=== PATIENT | male | born 1955 | race Caucasian/White ===

== ENCOUNTER → 2020-11-06 14:06 | Outpatient (CLI) | payer OTHER, SELFPAY ==
--- NOTE | 2020-11-06 14:08 | DI.MRI.S_ITS ---
PROCEDURE: MR CERVICAL SPINE WO CON INDICATIONS: cervical radiculopathy TECHNIQUE: Noncontrast sagittal T1 spin echo and T2 fast spin echo, sagittal STIR, foraminal oblique sagittal T2 fast spin echo, and axial gradient echo or T2 fast spin echo through the cervical spine. COMPARISON: None. FINDINGS: Image quality: Excellent. Alignment and Curvature: Grade 1 anterolisthesis of C3 on C4 and grade 1 retrolisthesis of C4 on C5. Grade 1 anterolisthesis of C6 on C7 and C7 on T1. Bone Marrow: No fracture. Multilevel degenerative endplate sclerosis and spurring. Diffuse facet arthropathy. Spinal Cord: Visualized spinal cord has normal size and signal. No cerebellar tonsillar herniation. Paraspinous Soft Tissues: No paravertebral masses. Prevertebral soft tissues are normal in thickness. C2-C3: No definite canal or right foraminal stenosis. Mild left foraminal narrowing C3-C4: Mild canal narrowing. Severe right foraminal stenosis with nerve root compression. Minimal left foraminal stenosis C4-C5: Mild canal narrowing. Mild right foraminal stenosis. Moderate left foraminal stenosis with nerve root compression. C5-C6: Idfh-zq-lbpljgko canal narrowing. Moderate right foraminal stenosis . Mild left foraminal narrowing. C6-C7: No canal stenosis. No foraminal stenosis. C7-T1: No definite canal narrowing. No foraminal stenoses IMPRESSION: Multilevel spondylolisthesis as above. Cervical spondylosis and facet arthropathy. Pjdu-lb-qptzvzqp canal narrowing at C5-C6 Diffuse bilateral foraminal stenoses as detailed above by spinal level Dictated by: Lonnie Simental M.D. on 11/06/2020 at 15:27 Approved by: Lonnie Simental M.D. on 11/06/2020 at 15:34
== END ==
PROVIDERS: Referring Provider Physical Medicine & Rehabilitation; Visit Provider Physical Medicine & Rehabilitation
DX: M47.22 Other spondylosis with radiculopathy, cervical region (principal); M43.12 Spondylolisthesis, cervical region; M48.02 Spinal stenosis, cervical region
CPT/HCPCS: 72141

== ENCOUNTER → 2021-02-11 08:59 | Outpatient (CLI) | payer OTHER, SELFPAY ==
[2021-02-11 09:16] LABS: Add Manual Diff / Slide Review NO; Basophils Absolute Auto 0 /uL (0-100); Basophils Percent Auto 0.7 % (0-2); Eosinophils Absolute Auto 300 /uL (0-450); Eosinophils Percent Auto 4.3 % (2-4); Hematocrit 41.8 % (41-53); Hemoglobin 14.3 g/dL (13.5-17.5); Lymphocytes Absolute Auto 1700 /uL (1100-4500); Lymphocytes Percent Auto 26.7 % (25-40); Mean Corpuscular HGB Conc 34.1 % (30-36); Mean Corpuscular Hemoglobin 29.3 PG (26-34); Monocytes Absolute Auto 800 /uL (0-900); Monocytes Percent Auto 12.2 % (3-14); Neutrophils Absolute Auto 3700 /uL (1500-7000); Neutrophils Percent Auto 56.1 % (50-75); Platelet Count 209 X10^3/uL (150-400); Red Blood Cell Count 4.86 X10^6/uL (4.5-5.9); Red Cell Distribution Width 12.8 % (11.6-14.8); White Blood Cell Count 6.5 X10^3/uL (4.5-11.0)
[2021-02-11 09:33] LABS: Alanine Aminotransferase 24 IU/L (<50); Albumin 4.5 g/dL (3.5-5.0); Albumin Globulin Ratio 1.3 (1.0-2.8); Alkaline Phosphatase 72 U/L (38-126); Aspartate Aminotransferase 34 IU/L (17-59); BUN Creatinine Ratio 15.4 (6-22); Bilirubin Total 0.6 mg/dL (0.2-1.3); Blood Urea Nitrogen 19 mg/dL (9-20); Calcium 9.5 mg/dL (8.4-10.2); Carbon Dioxide 28 mmol/L (22-32); Chloride 104 mmol/L (98-107); Estimated Glomerular Filt Rate 59.1 mL/min (>60); Globulin 3.4 g/dL (1.7-4.1); Glucose 104 mg/dL (80-110); Sodium 140 mmol/L (137-145); Total Protein 7.9 g/dL (6.3-8.2)
[2021-02-11 09:38] LABS: HEMOLYSIS 55 (0-50)
[2021-02-11 09:41] LABS: Potassium 4.3 mmol/L (3.4-5.1)
[2021-02-11 10:15] LABS: Bacteria Urine None Seen
[2021-02-11 10:30] LABS: Appearance Urine UA CLEAR; Bilirubin Urine UA NEGATIVE (NEGATIVE); Color Urine UA YELLOW; Glucose Urine UA NEGATIVE (Negative); Ketones Urine UA NEGATIVE (NEGATIVE); Leukocyte Esterase Urine UA NEGATIVE (NEGATIVE); Nitrite Urine UA NEGATIVE (Negative); Occult Blood Urine UA 3+ (Negative); Protein Urine UA NEGATIVE (Negative); Urobilinogen Urine UA 0.2 E.U./dL (0.2)
[2021-02-11 10:44] LABS: Culture Indicated Urine Cult Not Indicated; RBC Urine 30-100/HPF (0-5/HPF); Squamous Epithelial Cell Urine 0-1 /HPF (0-5/HPF); WBC Urine 0-1/HPF (0-5/HPF)
== END ==
PROVIDERS: PCP Family Medicine; Referring Provider Student in an Organized Health Care Education/Training Program; Visit Provider Student in an Organized Health Care Education/Training Program
DX: R31.9 Hematuria, unspecified (principal)
CPT/HCPCS: 36415; 80053; 81001; 85025; 87086

== ENCOUNTER → 2021-03-05 08:27 | Outpatient (CLI) | payer OTHER, SELFPAY ==
[2021-03-05 08:31] LABS: Bacteria Urine None Seen
[2021-03-05 09:55] LABS: Appearance Urine UA CLEAR; Bilirubin Urine UA NEGATIVE (NEGATIVE); Color Urine UA YELLOW; Glucose Urine UA NEGATIVE (Negative); Ketones Urine UA NEGATIVE (NEGATIVE); Leukocyte Esterase Urine UA NEGATIVE (NEGATIVE); Nitrite Urine UA NEGATIVE (Negative); Occult Blood Urine UA TRACE-LYSED (Negative); Protein Urine UA NEGATIVE (Negative); Specific Gravity Urine UA 1.025 (1.000-1.035); Urobilinogen Urine UA 0.2 E.U./dL (0.2)
[2021-03-05 10:09] LABS: RBC Urine 0-1/HPF (0-5/HPF); WBC Urine 0-1/HPF (0-5/HPF)
[2021-03-05 10:10] LABS: Culture Indicated Urine Cult Not Indicated
== END ==
PROVIDERS: PCP Family Medicine; Referring Provider Family Medicine; Visit Provider Family Medicine
DX: R31.9 Hematuria, unspecified (principal)
CPT/HCPCS: 81001

== ENCOUNTER → 2021-06-18 08:57 | Outpatient (CLI) | payer OTHER, SELFPAY ==
[2021-06-18 10:30] LABS: Add Manual Diff / Slide Review NO; Basophils Absolute Auto 100 /uL (0-100); Eosinophils Absolute Auto 200 /uL (0-450); Eosinophils Percent Auto 4.4 % (2-4); Hematocrit 41.4 % (41-53); Hemoglobin 13.9 g/dL (13.5-17.5); Lymphocytes Absolute Auto 1400 /uL (1100-4500); Lymphocytes Percent Auto 25.1 % (25-40); Mean Corpuscular HGB Conc 33.6 % (30-36); Mean Corpuscular Volume 89.4 fL (80-100); Monocytes Absolute Auto 700 /uL (0-900); Monocytes Percent Auto 13.1 % (3-14); Neutrophils Absolute Auto 3200 /uL (1500-7000); Neutrophils Percent Auto 56.4 % (50-75); Platelet Count 166 X10^3/uL (150-400); Red Blood Cell Count 4.63 X10^6/uL (4.5-5.9); Red Cell Distribution Width 13.1 % (11.6-14.8); White Blood Cell Count 5.7 X10^3/uL (4.5-11.0)
[2021-06-18 10:50] LABS: Alanine Aminotransferase 18 IU/L (<50); Albumin 4.3 g/dL (3.5-5.0); Albumin Globulin Ratio 1.4 (1.0-2.8); Alkaline Phosphatase 72 U/L (38-126); Aspartate Aminotransferase 27 IU/L (17-59); BUN Creatinine Ratio 18.5 (6-22); Bilirubin Total 0.8 mg/dL (0.2-1.3); Blood Urea Nitrogen 23 mg/dL (9-20); Calcium 9.3 mg/dL (8.4-10.2); Carbon Dioxide 28 mmol/L (22-32); Chloride 106 mmol/L (98-107); Cholesterol 203 mg/dL (140-199); Estimated Glomerular Filt Rate 58.5 mL/min (>60); Glucose 88 mg/dL (80-110); HDL Cholesterol 45 mg/dL (40-60); HEMOLYSIS < 15 (0-50); LDL Cholesterol Calculated 124 mg/dL (<100); Potassium 4.3 mmol/L (3.4-5.1); Sodium 140 mmol/L (137-145); Total Protein 7.3 g/dL (6.3-8.2); Triglycerides 169 mg/dL (35-150)
== END ==
PROVIDERS: PCP Family Medicine; Referring Provider Family Medicine; Visit Provider Family Medicine
DX: E78.2 Mixed hyperlipidemia (principal)
CPT/HCPCS: 36415; 80053; 80061; 85025

== ENCOUNTER → 2021-09-17 14:04 | Outpatient (CLI) | payer OTHER, SELFPAY ==
[2021-09-17 16:22] LABS: Add Manual Diff / Slide Review NO; Basophils Absolute Auto 0 /uL (0-100); Basophils Percent Auto 0.7 % (0-2); Eosinophils Absolute Auto 200 /uL (0-450); Eosinophils Percent Auto 3.1 % (2-4); Hematocrit 39.6 % (41-53); Hemoglobin 13.3 g/dL (13.5-17.5); Lymphocytes Absolute Auto 1700 /uL (1100-4500); Lymphocytes Percent Auto 25.7 % (25-40); Mean Corpuscular HGB Conc 33.5 % (30-36); Mean Corpuscular Hemoglobin 29.5 PG (26-34); Monocytes Absolute Auto 700 /uL (0-900); Monocytes Percent Auto 10.3 % (3-14); Neutrophils Absolute Auto 4000 /uL (1500-7000); Neutrophils Percent Auto 60.2 % (50-75); Platelet Count 221 X10^3/uL (150-400); White Blood Cell Count 6.6 X10^3/uL (4.5-11.0)
[2021-09-17 17:33] LABS: BUN Creatinine Ratio 18.6 (6-22); Blood Urea Nitrogen 24 mg/dL (9-20); Calcium 9.2 mg/dL (8.4-10.2); Carbon Dioxide 30 mmol/L (22-32); Chloride 102 mmol/L (98-107); Estimated Glomerular Filt Rate 55.9 mL/min (>60); Glucose 92 mg/dL (80-110); HEMOLYSIS < 15 (0-50); Potassium 4.7 mmol/L (3.4-5.1); Sodium 140 mmol/L (137-145)
== END ==
PROVIDERS: PCP Family Medicine; Referring Provider Orthopaedic Surgery Orthopaedic Surgery of the Spine; Visit Provider Orthopaedic Surgery Orthopaedic Surgery of the Spine
DX: Z01.812 Encounter for preprocedural laboratory examination (principal); R73.9 Hyperglycemia, unspecified
CPT/HCPCS: 36415; 80048; 83036; 85025; 93005

== ENCOUNTER → 2021-10-06 16:53 | Outpatient (CLI) | payer OTHER, SELFPAY ==
[2021-10-06 17:31] LABS: COVID19 -Nasal RAPID Negative (Negative)
== END ==
PROVIDERS: PCP Family Medicine; Referring Provider Physician Assistant; Visit Provider Physician Assistant
DX: Z20.822 Contact with and (suspected) exposure to COVID-19 (principal)
CPT/HCPCS: 87635

== ENCOUNTER 2021-10-07 07:48 | Observation (INO) | payer OTHER, SELFPAY ==
[2021-09-29 08:46] VITALS: BMI 27.2
[2021-10-07] VITALS (18 sets, daily range): BP systolic 125–159; BP diastolic 58–101; PULSE 68–94; RESP 8–100; TEMP 36.2–36.8; O2SAT 92–100; BMI 27.2
[2021-10-07] MEDS: ACETAMINOPHEN 325 MG TABLET 975 MG PO (08:30)
[2021-10-07] MEDS: LACTATED RINGERS 1,000 ML 42 ML IV ×2 (08:46→12:19)
--- NOTE | 2021-10-07 09:06 | PM.PREOP ---
Pre-operative Note COVID-19 COVID-19 status: Negative Result date/Date tested (Pos, Neg/Pending): 10/05/21 Interval Note History & Physical reviewed/Exam performed by Physician: Yes Changes to H&P: No
[2021-10-07] MEDS: CEFAZOLIN 2 GM/20 ML SYRINGE IV ×2 (09:52→17:26)
--- NOTE | 2021-10-07 10:32 | SUR.OPER ---
Supine, head on gel donut. Arms padded with gel pads, tucked at sides, towel roll under shoulders. Safety belt at thigh. Legs uncrossed.
[2021-10-07] MEDS: BUPIVACAINE 0.25% (PF) 30 ML, EPINEPHrine 0.15 MG INJ (12:14)
--- NOTE | 2021-10-07 12:18 | DI.RAD.S_ITS ---
PROCEDURE: XR CERVICAL SPINE 2V OR 3V INDICATIONS: C5-6, C6-7 ACDF TECHNIQUE: 3 view(s) of the cervical spine were acquired. COMPARISON: [facility], , CERVICAL SPINE INTERLAMINAR, 03/08/2021, 14:09. FINDINGS: 3 intraoperative images demonstrate discectomy and anterior fusion at C5-C6 and C6-C7. IMPRESSION: Discectomy anterior fusion at C5-C6 and C6-C7. Dictated by: Perry Barboza M.D. on 10/07/2021 at 12:46 Approved by: Perry Barboza M.D. on 10/07/2021 at 12:47
--- NOTE | 2021-10-07 12:27 | PM.OP.1 ---
Operative Date/Time/Diagnoses Date of procedure: 10/07/21 Time of procedure: 10:15 Pre-op diagnosis: 1. C5-6, C6-7 spinal stenosis 2. C5-6, C6-7 spondylolisthesis Post-op diagnosis: same Procedure & Clinicians Procedure: 1. C5-6 C6-7 anterior cervical diskectomy and fusion 2. C5-6 C6-7 anterior interbody cage placement 3. C5-6 C6-7 anterior instrumentation with plate and screw placement in C5-C6 and C7 vertebrae 4. Utilization of microsurgical technique and operating microscope Same procedure as scheduled: Yes Indications: Patient has been having chronic neck pain and worsening cervical radiculopathy. Patient failed multiple conservative management with worsening pain weakness and numbness in his upper extremity. Patient has been having difficulty performing activity of daily living. After discussing risks benefits of treatment options, patient elected proceed with surgery. Surgeon: Trina Rolle Photography Spotter: Denae Daily Click Yes if Unassisted: No Anesthesia Type: General Operative Notes Closure Type: primary Specimen(s): none sent Prosthetic devices, grafts, tissues, transplants, or devices: Globus Extend Plate, PEEK cages Estimated Blood Loss (mL): 5 Blood products transfused: none Procedure in detail: Patient was seen in the preoperative area. Risks and benefits of the surgery was discussed with the patient. Operative consent was obtained and placed in the chart. Patient was then taken to the operative room. Prophylactic antibiotic was given less than 0.5 hr prior to skin incision. General anesthesia was administered. Patient was placed into a supine position on her radiolucent table. Bilateral shoulders were taped down to allow proper C-arm imaging. Anterior cervical area was prepped and draped in a sterile fashion. Time-out was performed at this time. Using lateral C-arm imaging, the level between C5 and C7 was identified and marked on patient's neck. A oblique incision from midline towards medial border of sternocleidomastoid muscle was made. The platysma muscle was incised in line with skin incision. Metzenbaum scissor was used to develop the plane between the medial border of sternocleidomastoid d and the strap muscles medially. The carotid sheath and its contents were identified and protected behind the hand-held retractor during the entire case. The plane between the carotid sheath and strap muscles was developed with Metzenbaum scissors. Dissection was made down to the level of the anterior cervical fascia. Longus colli muscle was incised on the anterior aspect of vertebral bodies bilaterally from C5-C7. Spinal needle was placed into the C5-6 disc space and confirmed with lateral C-arm imaging. Using microsurgical technique and operative microscope, anterior cervical diskectomy was performed at C5-6 and C6-7 level. This was done by removing the disc material, removing the anterior and posterior osteophytes posterior longitudinal ligaments along with performing bilateral foraminotomies at both levels. Patient was found to have severe central and foraminal stenosis at both levels. Patient's stenosis was fully decompressed after decompression was completed. After the diskectomy was completed, 2 anterior interbody cages were obtained. The cages were packed with globus via cell bone grafting material. One cage each along with the bone grafting material was then packed into the interbody spaces from C5-C7 with one cage into each interbody level. After reviewing the MRI imaging there is not significant spinal stenosis at C7-T1 level. Patient also has significant cephalad located clavicle making the approach to C7-T1 level difficult. Decision at this time was to not perform the fusion surgery at C7-T1 level. If indicated in the future with persisting symptoms, patient may need to consider posterior approach for C7-T1 fusion surgery. After the cages were placed, the anterior cervical plate was stabilized to the C5-C7 vertebrae using 2 screws at each each level. Total 6 screws were placed. After confirming placement of the hardware with AP and lateral C-arm imaging, the screws were locked into the plate using the locking mechanism and torque limiting screwdriver. After the hardware was placed and confirmed with AP and lateral C-arm imaging, the wound was irrigated with sterile normal saline. The platysma muscle and the subcutaneous tissue was closed with 2-0 Vicryl. The skin was closed with 4-0Monocryl and Steri-Strips. Patient tolerated the procedure well. Patient was transferred recovery room in stable condition. There were no complications. Complications: none Post-operative Condition: stable Disposition: PACU Plan for aftercare: Admit to inpatient hospital
[2021-10-07] MEDS: fentaNYL 100 MCG/2 ML INJ IV (13:11)
[2021-10-07] MEDS: HYDROMORPHONE 2 MG INJ IV ×2 (13:12→13:21)
[2021-10-07] MEDS: hydrOXYzine 50 MG/ML INJ 25 MG IM (13:23)
[2021-10-07] MEDS: OXYCODONE IR 5 MG TABLET PO (13:44)
[2021-10-07] MEDS: SODIUM CHLORIDE 0.9% 1,000 ML 100 ML IV (14:53)
[2021-10-07] MEDS: hydrOXYzine pamoate 25 MG CAPSULE PO ×2 (17:21→23:43)
[2021-10-07] MEDS: ACETAMINOPHEN 325 MG TABLET 650 MG PO ×2 (17:21→23:44)
[2021-10-07] MEDS: OXYCODONE IR 5 MG TABLET 10 MG PO ×3 (17:22→23:43)
--- NOTE | 2021-10-07 18:58 | PC.NURSE ---
Pt arrived via bed from PACU at 1425. VSS, afebrile on RA. He is awake and OX3, moving all extremities well. He denies N/V, SOB, or numbness/tingling to extremities. Soft collar in place, with dressing underneath c/d/i. He reports throat slightly sore but able to advance diet slowly, then able to tolerate 100% of general diet meal this evening. He is able to ambulate to the bathroom and void multiple times this evening. He denies dizziness. PRN oxycodone, tylenol and vesteril given for increasing pain this evening with good effect he reports pain down to a 1/10. NS @ 100ml/hr, scd's and reaching 4000 on IS. went home for the evening, bed alarm placed.
[2021-10-07] MEDS: DOCUSATE 100 MG CAPSULE PO (20:55)
[2021-10-07] MEDS: SENNOSIDES 8.6 MG TABLET 17.2 MG PO (20:56)
[2021-10-07] MEDS: BENZOCAINE/MENTHOL 1 LOZ PKT 1 EACH PO ×3 (20:59→23:50)
[2021-10-08] MEDS: SODIUM CHLORIDE 0.9% 1,000 ML 100 ML IV (01:26)
[2021-10-08] MEDS: CEFAZOLIN 2 GM/20 ML SYRINGE IV (01:26)
[2021-10-08 03:25] VITALS: BP 151/83; PULSE 84; RESP 16; TEMP 37.4; O2SAT 97
[2021-10-08] MEDS: OXYCODONE IR 5 MG TABLET 10 MG PO ×2 (03:38→11:07)
[2021-10-08] MEDS: hydrOXYzine pamoate 25 MG CAPSULE PO ×2 (03:39→11:08)
[2021-10-08] MEDS: BENZOCAINE/MENTHOL 1 LOZ PKT 1 EACH PO (03:39)
[2021-10-08 05:02] LABS: Hematocrit 37.5 % (41-53); Hemoglobin 12.6 g/dL (13.5-17.5)
--- NOTE | 2021-10-08 08:09 | P.DS_ITS ---
History of Present Illness History of Present Illness Date Patient Seen: 10/08/21 Time Patient Seen: 08:09 Chief complaint: Neck pain s/p ACDF Narrative: The patient is complaining of smur-km-rsfnczne neck pain this morning. He is having mild difficulty swallowing but the lozenges are helping. He denies any new numbness or tingling in his upper extremities. Overall he is feeling well Discharge Providers Provider Discharge Date: 10/08/21 Primary care physician: Tian Keene DO Consults: 09/29/21 09:44 Consult to Anesthesiology Routine Comment: Consulting Provider: Anesthesiologist Reason for consultation: PAC courtesy re: Abnormal pre-op EKG 10/07/21 14:27 Consult to Occupational Therapy Evaluate & Treat Comment: Physician Instructions: Evaluate and treat Consult to Physical Therapy Evaluate & Treat Comment: Physician Instructions: Evaluate and Treat Discharge provider: Denae Daily PA-C Summary Hospital Course Discharge Diagnosis: 1. C5-6, C6-7 spinal stenosis 2. C5-6, C6-7 spondylolisthesis Hospital Course: Date of procedure: 10/07/21 Time of procedure: 10:15 Procedure & Clinicians Procedure: 1.? C5-6 C6-7 anterior cervical diskectomy and fusion 2.? C5-6 C6-7 anterior interbody cage placement 3.? C5-6 C6-7 anterior instrumentation with plate and screw placement in C5-C6 and C7 vertebrae 4.? Utilization of microsurgical technique and operating microscope Same procedure as scheduled: Yes Indications: Patient has been having chronic neck pain and worsening cervical radiculopathy. Patient failed multiple conservative management with worsening pain weakness and numbness in his upper extremity.? Patient has been having difficulty performing activity of daily living.? After discussing risks benefits of treatment options, patient elected proceed with surgery. Surgeon: Trina Rolle Global Marketing Operations Manager: Denae Daily Click Yes if Unassisted: No Anesthesia Type: General Operative Notes Closure Type: primary Specimen(s): none sent Prosthetic devices, grafts, tissues, transplants, or devices: Globus Extend Plate, PEEK cages Estimated Blood Loss (mL): 5 Blood products transfused: none Exam Vital Signs (past 8 hours): - 10/08/21 03:25 Temperature 99.3 F Pulse Rate 84 Respiratory Rate 16 Blood Pressure 151/83 H Pulse Oximetry 97 Oxygen Delivery Method Room Air Oxygen Flow Rate 0 Narrative Exam Narrative: Pleasant 66-year-old male, resting comfortably in bed, no acute distress. Dressing is clean, dry, intact. No surrounding erythema, induration or signs of a hematoma. Of bilateral upper extremities: Motor function is grossly intact, sensation is grossly intact to light touch. Objective Labs Result Diagrams: 10/08/21 04:35 Labs: Laboratory Results - last 24 hr 10/08/21 04:35 Hgb 12.6 L Hct 37.5 L PFSH Medical History Adverse reaction to COVID-19 vaccine (01/20/21) Bilateral carpal tunnel syndrome Cervical radiculopathy Cervical somatic dysfunction Erosion of terminal ileum HTN (hypertension) Hyperlipidemia, mixed Hypothyroidism (acquired) Neck pain of over 3 months duration Neck stiffness Nocturia associated with benign prostatic hyperplasia Spinal stenosis of cervical region Spondylolisthesis, cervical region Upper extremity somatic dysfunction Vaccine reaction Surgical History H/O hernia repair History of surgery Hx of tonsillectomy Family History Father Heart disease Mother Cancer Brother Cancer Other No pertinent family history Social History household members: spouse Smoking Status: Never smoker alcohol intake: former Discharge Assessment & Plan Assessment and Plan Assessment: Stable status post ACDF Plan of Treatment: -mobilize with PT. Limit bending, lifting, twisting -continue with current pain regimen -DC home today once cleared by PT. Discharge Plan Discharge Plan Patient Disposition: Home Discharge orders & Medications Discharge Orders: Discharge (Order); Ordered 10/08/21 Ordered By: Denae Daily Prescriptions: New acetaminophen 500 mg capsule 500 mg PO Q4H MDD Max 3000 mg per day PRN (Reason: Pain, Mild (1-3)) Qty: 90 0RF Cepacol Sore Throat (jem-men) 15-3.6 mg Lozenge 1 destinee PO Q4H PRN (Reason: Sore Throat) Qty: 16 1RF docusate sodium 100 mg Capsule 100 mg PO BID PRN (Reason: Constipation from narcotic pain meds) Qty: 20 0RF hydroxyzine pamoate 25 mg Capsule 25 mg PO Q4HR PRN (Reason: pain, spams, nausea) Qty: 30 0RF oxycodone 5 mg Tablet 10 mg PO Q4H PRN (Reason: Pain, Severe (7-10)) Qty: 42 0RF Continued lisinopril 10 mg tablet See Rx Instructions .ROUTE .COMPLEX Qty: 90 0RF Dose Instruction: take 1 tablet by mouth once daily Rx Instructions: take 1 tablet by mouth once daily levothyroxine 125 mcg tablet 125 mcg PO DAILY 0RF celecoxib [Celebrex] 200 mg capsule 200 mg PO DAILY PRN (Reason: Pain) 0RF Follow up/Referrals: Trina Rolle MD [Physician] - (10-14 days for postoperative visit) Tian Keene DO [Primary Care Provider] - Diet/Activity/Treatments Diet: Diet as Tolerated and Regular Other treatments: Medications: -OTC Tylenol 500 mg 1 tablet every 4 hours as needed for pain/fever. Max 6 tablets per day. -Oxycodone 5 mg take 1-2 tablets every 4 hours as needed for moderate-severe pain (narcotic pain medication). -As needed medications: -Ducolax and /or MiraLax as needed for constipation from narcotic pain medications. -Pepcid AC as needed for stomach upset. -Vistaril (hydroxyine) 25mg 1 tab every 4 hours as needed for spasms/pain/nausea. Dressing/Wound care: -Keep dressing in place until postoperative follow-up office visit. -Okay to shower. Keep wound out of direct water stream. Can use PressNSeal plastic wrap to protect from shower stream. No soaking or submerging until all the scabs fall off (approximately 6 weeks). -Please call the office if dressing becomes wet, soiled, or saturated. Activities: -Limit bending, lifting, twisting. -Weight-bearing as tolerated. Use front wheeled walker, and progress to cane when safe. -Continue with home exercises as directed by your physical therapist. -Ice your incision as needed for pain/inflammation/swelling. Protect your skin with a folded pillowcase. Follow-up: -Follow-up with your surgeon or PA in the office in 10-14 days after surgery. -Follow-up with your surgeon 6 weeks postoperatively. Call the office if you have chest pain, shortness of breath, significant swelling that will not resolve with elevating, fever over 101?, significantly worsening pain. [facility]: [phone] Skin/Wound/Dressing Care Report to your healthcare provider any signs of infection, such as:: chills, fever, night sweats, unusual drainage and unusual redness Visit Report/Discharge Packet Instructions: DI for Anterior Cervical Discectomy and Fusion Stand Alone Forms: Surgery Discharge Discharge Data Primary Care Provider: Tian Keene Attending Provider: Trina Rolle VTE Deep Vein Thrombosis/Pulmonary Embolism Present on Admission: No
[2021-10-08 08:17] VITALS: BP 128/84; PULSE 76; RESP 16; TEMP 36.8; O2SAT 97
[2021-10-08 08:27] VITALS: BP 128/74; PULSE 86
[2021-10-08] MEDS: lisinopriL 10 MG TABLET PO (08:27)
[2021-10-08] MEDS: DOCUSATE 100 MG CAPSULE PO (08:27)
[2021-10-08] MEDS: LEVOTHYROXINE 125 MCG TABLET PO (08:27)
--- NOTE | 2021-10-08 09:26 | OT.IP.EVAL ---
Current Diagnoses Spondylolisthesis, cervical region (10/07/21) Spinal stenosis, cervical region (10/07/21) Surgery Performed Operation Date: 10/07/21 09:15 Actual Procedures p C5-6, C6-7 ACDF with anterior instrumentation - Trina Rolle MD Past Medical History (Last Reviewed 10/08/21 @ 08:11 by Denae Daily PA-C) Adverse reaction to COVID-19 vaccine (01/20/21) Bilateral carpal tunnel syndrome Cervical radiculopathy Cervical somatic dysfunction Erosion of terminal ileum H/O hernia repair History of surgery HTN (hypertension) Hx of tonsillectomy Hyperlipidemia, mixed Hypothyroidism (acquired) Neck pain of over 3 months duration Neck stiffness Nocturia associated with benign prostatic hyperplasia Spinal stenosis of cervical region Spondylolisthesis, cervical region Upper extremity somatic dysfunction Vaccine reaction Surgical History (Last Reviewed 10/08/21 @ 08:11 by Denae Daily PA-C) H/O hernia repair History of surgery Hx of tonsillectomy Occupational Therapy Inpatient Evaluation/Re-Eval M1 PT/OT-IP Prior Functional Status Start: 10/08/21 10:01 Freq: NEEDED Status: Active Protocol: Document 10/08/21 10:01 [facility] (Rec: 10/08/21 10:11 [facility] [id number]) Medical Review Prior Functional Status Communication Independent Mobility and Gait Per pt did not use a device and was independent for mobility needs. 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 Social History Household Members spouse Living Arrangements House Number of Floors (Floors) One Floor Number of Stairs To Enter/Railing? 2 steps with wide rails or able to use a ramp. Home Environment Walk in Shower,Ramp Home Equipment Straight Cane,Power Wheelchair /Scooter M2 OT-IP Current Condition Start: 10/08/21 10:01 Freq: Status: Active Protocol: Document 10/08/21 10:01 [facility] (Rec: 10/08/21 10:11 [facility] [id number]) Occupational Therapy Current Condition Current Condition Evaluation Date 10/08/21 Treatment Diagnosis S/p C5-6, C6-7 ACDF Diagnosis Onset Date 10/07/21 Post Operative Precautions Cervical Spine Precautions Soft Collar for Comfort,No Heavy Lifting,Log Roll M3 OT- IP Subjective and Pain Start: 10/08/21 10:01 Freq: Status: Active Protocol: Document 10/08/21 10:01 [facility] (Rec: 10/08/21 10:11 [facility] [id number]) OT- Subjective Occupational Therapy Visit Type Type Initial Evaluation Visit Start Time 08:54 Visit Stop Time 09:26 Total Visit Minutes 32 Occupational Therapy Visit Comments Patient Comments Pt agreed to get up for Ot eval. Patient/Caregiver Goals TO go home. OT Pain Assessment Pain When Pain Assessed At Rest Pain Present Pain Present Pain Reported Location neck Intensity 2 Scale Used Numeric (0 - 10) M4 OT- IP ADL's Start: 10/08/21 10:01 Freq: Status: Active Protocol: Document 10/08/21 10: [facility] (Rec: 10/08/21 10:11 [facility] [id number]) OT LSQ-Rqkc-Mwyynqh General Evaluation Self-Feeding Ability Independent Comments OT Self-Feeding Comments Able to go over information for swallowing and eating after ACDF with pt. OT ADL-Oral Care Comments Oral Care Comments Educated best to spit into a cup to best follow his cervical precautions. OT ADL-Dressing General Eval Upper Body Dressing Ability Independent, pt able to independently imtiaz/doff his soft collar. Lower Body Dressing Ability Standby Assistance Comments OT Dressing Comments Pt able to comfortably cross his leg to don his LB clothing with good safety. Able to show pt visual arts teacher to help increase ease for needs. OT ADL-Toileting Comments OT Toileting Comments Pt not having to go. M5 OT- IP IADL's Start: 10/08/21 10:01 Freq: Status: Active Protocol: Document 10/08/21 10: [facility] (Rec: 10/08/21 10:11 [facility] [id number]) OT-Instrumental Activities of Daily Living Home Safety Awareness Home Safety Comments Pt has a supportive that will assist with his needs. M6 OT- IP Functional Cognition Start: 10/08/21 10:01 Freq: Status: Active Protocol: Document 10/08/21 10: [facility] (Rec: 10/08/21 10:11 [facility] [id number]) Cognitive Factors Limiting Selfcare Function Cognitive Ability Level of Alertness Alert Patient Orientation Name,Age,Birthday,Month,Date, Year,Day of Week,Place, Situation Attention Span Ability Capable of Focused Attention, Capable of Sustained Attention Ability to Follow Commands Able to Follow Multi-Step Commands Memory Description No Deficits Noted Safety Awareness No Deficits Noted Problem Solving Ability No deficits Noted Cognitive Comments Cognitive Assessment Comments Pt just needing initial vc to slow down. OT- Vision and Hearing OT- Hearing Assessment OT- Hearing Assessment WFL OT- Vision Assessment Visual Acuity Glasses All The Time M7 OT- IP Mobility and Balance Start: 10/08/21 10:01 Freq: Status: Active Protocol: Document 10/08/21 10:01 [facility] (Rec: 10/08/21 10:11 [facility] [id number]) OT- Bed Mobility Assessment Rolling Level of Assistance Independent Supine to Sit Supine to Sit Assist Standby Assistance Sit to Supine Sit to Supine Assist Standby Assistance OT-Transfer Assessment Sit to and From Stand Sit to and from Stand Independent Transfers Transfer Ability Independent Technique Transfer Destination Bed,Chair Devices Transfer Assistive Devices Gait Belt Comments Mobility Comments Initial education for log rolling and afterwards pt able to more independently in the room. OT- Balance Assessment Sitting Balance and Reactions Static Sitting Balance Ability Normal Dynamic Sitting Balance Ability Normal Standing Balance and Reactions Static Standing Balance Ability Normal Dynamic Standing Balance Ability Good M9 OT- IP Assessment and Plan Start: 10/08/21 10:01 Freq: Status: Active Protocol: Document 10/08/21 10:01 [facility] (Rec: 10/08/21 10:11 [facility] [id number]) OT Summary Assessment and Plan Potential Rehabilitation Potential Excellent Analytic Complexity at Evaluation Low Summary OT Impairments Pain,Bathing Progress Towards Goals Progressing Toward Goals Assessment Summary Pt low complexity and main barriers are pain and needing initial cues to slow down. Pt educated to be mindful of his head positioning needs during ADL. Pt has a supportive to assist at home. Pt looking to go home today. Goals Patient/Caregiver Education Goal Demonstrate Post-Op Precautions Days to Meet Goals 1 Frequency of Treatment Frequency Of Treatment Once a Day Treatment Plan OT Treatment Plan Patient/Family Education, Discharge Planning Discharge Recommendations OT Discharge Recommendations Home with Assistance Transportation Needs at Discharge Private Vehicle
--- NOTE | 2021-10-08 10:06 | PT.IIE ---
Current Diagnoses Spondylolisthesis, cervical region (10/07/21) Spinal stenosis, cervical region (10/07/21) Surgery Performed Operation Date: 10/07/21 09:15 Actual Procedures p C5-6, C6-7 ACDF with anterior instrumentation - Trina Rolle MD Medical History (Last Reviewed 10/08/21 @ 08:11 by Denae Daily PA-C) Adverse reaction to COVID-19 vaccine (01/20/21) Bilateral carpal tunnel syndrome Cervical radiculopathy Cervical somatic dysfunction Erosion of terminal ileum HTN (hypertension) Hyperlipidemia, mixed Hypothyroidism (acquired) Neck pain of over 3 months duration Neck stiffness Nocturia associated with benign prostatic hyperplasia Spinal stenosis of cervical region Spondylolisthesis, cervical region Upper extremity somatic dysfunction Vaccine reaction Physical Therapy Inpatient Evaluation/Re-Eval M1 PT/OT-IP Prior Functional Status Start: 10/08/21 10:01 Freq: NEEDED Status: Discharge Protocol: Document 10/08/21 10:01 [facility] (Rec: 10/08/21 10:11 [facility] [id number]) Medical Review Prior Functional Status Communication Independent Mobility and Gait Per pt did not use a device and was independent for mobility needs. 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 Social History Household Members spouse Living Arrangements House Number of Floors (Floors) One Floor Number of Stairs To Enter/Railing? 2 steps with wide rails or able to use a ramp. Home Environment Walk in Shower,Ramp Home Equipment Straight Cane,Power Wheelchair /Scooter M1 PT/OT-IP Prior Functional Status Start: 10/08/21 12:07 Freq: NEEDED Status: Active Protocol: Document 10/08/21 10:06 AB (Rec: 10/08/21 12:16 AB [id number]) Medical Review Prior Functional Status Medical History Reviewed Yes Communication able to make needs known Mobility and Gait pt tated that he is independent with all mobilities and ambulation without AD Social History Household Members spouse Living Arrangements House Number of Floors (Floors) One Floor Number of Stairs To Enter/Railing? 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 [employer] M2 PT-IP Current Condition Start: 10/08/21 12:07 Freq: NEEDED Status: Active Protocol: Document 10/08/21 10:06 AB (Rec: 10/08/21 12:16 AB [email or web address]) Physical Therapy Current Condition Current Condition Evaluation Date 10/08/21 Treatment Diagnosis s/p C5-6, C6-7 ACDF; difficulty in walking Onset Date 10/07/21 M3 PT-IP Subjective Start: 10/08/21 12:07 Freq: NEEDED Status: Active Protocol: Document 10/08/21 10:06 AB (Rec: 10/08/21 12:16 AB [id number]) Subjective Physical Therapy Visit Type Type Initial Evaluation Visit Start Time 10:06 Visit Stop Time 10:16 Total Visit Minutes 10 Number of MAINTENANCE MAN Visits 0 Physical Therapy Visit Comments Patient Comments agreeable to do PT Therapy Pain Assessment Pain When Pain Assessed At Rest Pain Present Pain Present Pain Reported Location neck Intensity 4 Scale Used Numeric (0 - 10) Pain Management Techniques Distraction,Modification of Treatment,Re-positioning, Timing of Activity with Medications M4 PT-IP Mobility and Gait Start: 10/08/21 12:07 Freq: NEEDED Status: Active Protocol: Document 10/08/21 10:06 AB (Rec: 10/08/21 12:16 AB [email or web address]) PT-Bed Mobility Assessment Rolling Type of Rolling Log Rolling Level of Assist Standby Assistance Supine to Sit Supine to Sit Standby Assistance Sit to Supine Sit to Supine Standby Assistance PT-Transfer Assessment Sit to and From Stand Sit to and from Stand Standby Assistance Equipment Transfer Assistive Device None Comments Mobility Comments pt able to recall neck precautions. completed log roll bed mobility SBA, sit to stand SBA and ambulated in room without AD SBA. agreed to walk in the hallway and ambulated ~ 250 ft SBA without . requested to go back to bed . Pt without any concerns. call light and table placed within reach. Gait Assessment Gait Gait Assistance Required: Standby Assistance Distance (Feet) 250 Able to Maintain Weight Bearing Status Yes During Gait Assistive Devices Assistive Device None Orthotic/Prosthetic Devices or Brace: Yes PT-Balance Assessment Sitting Balance and Reactions Static Sitting Balance Ability Normal Dynamic Sitting Balance Ability Good Standing Balance and Reactions Static Standing Balance Ability Good Dynamic Standing Balance Ability Good Device Used without AD M5 PT-IP Objective Assessments Start: 10/08/21 12:07 Freq: NEEDED Status: Active Protocol: Document 10/08/21 10:06 AB (Rec: 10/08/21 12:16 AB [email or web address]) Orientation Orientation/Cognition Level of Alertness Alert Orientation Name,Age,Birthday,Month,Date, Year,Day of Week,Place, Situation Language Function Ability No Deficits Noted Safety Awareness Understands Safety Issues Memory Description No Deficits Noted Gross Range of Motion Lower Extremity ROM Assessment Within Functional Limits Strength Lower Extremity Strength Assessment Within Functional Limits Coordination Assessment Gross Coordination Gross Coordination WNL Muscle Tone Muscle Tone WNL Yes M6 PT-IP Treatment Start: 10/08/21 12:07 Freq: NEEDED Status: Active Protocol: Document 10/08/21 10:06 AB (Rec: 10/08/21 12:16 AB [email or web address]) Physical Therapy Treatment Education Education Provided Precautions,Safety M7 PT-IP Assessment and Plan Start: 10/08/21 12:07 Freq: NEEDED Status: Active Protocol: Document 10/08/21 10:06 AB (Rec: 10/08/21 12:16 AB [email or web address]) PT Summary Assessment and Plan Potential Rehabilitation Potential Good Status of Condition at Evaluation Stable Summary Impairments Pain,ROM,Strength,Balance, Coordination,Sensation,Tone, Cognition,Bed Mobility, Transfers,Gait,Activity Tolerance Assessment Summary pt requiring SBA with mobility without AD. pt plans to go home and spouse to assist pt. Pt may go home when medically stable. Goals Bed Mobility Goal Independent Transfer Goal Independent Gait Goal Independent Gait Distance 300 Days to Meet Goals 3 Frequency of Treatment Frequency Of Treatment Twice a Day Treatment Plan Physical Therapy Treatment Plan Bed Mobility Training,Transfer Training,Gait Training, Therapeutic Exercise,Balance Retraining,Post Op Education, Discharge Planning,Hot or Cold Pack,Neuromuscular Re-ed, Coordination Retraining,Manual Therapy Precautions Cervical Spine Precautions Soft Collar for Comfort,No Heavy Lifting,Log Roll Recommendations To Nursing Amount of Assist Needed Standby Assistance Discharge Recommendations PT Discharge Recommendations Home with Assistance, Outpatient PT Transportation Needs at Discharge Private Vehicle
[2021-10-08] MEDS: ACETAMINOPHEN 325 MG TABLET 650 MG PO (11:08)
--- NOTE | 2021-10-08 11:35 | CM.IDA ---
Discharge Planning/Care Management CM Discharge Assessment Start: 10/08/21 11:32 Freq: Status: Active Protocol: Document 10/08/21 11:32 CB (Rec: 10/08/21 11:35 CB [id number]) Discharge Planning Assessment Assigned Early Childhood Aide Classroom LAMONT Yanez DPOA/Assigned Designee Name Melinda Laura, spouse Contact Information [phone] cell Advance Directives? Yes Advance Directives on File No History Provided By Patient,Medical Record Prior Living Arrangements House Household Members spouse Type of transporation used prior to Drives own vehicle admit Independent with ADL's Yes Is patient alert and oriented? 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 Patient denies needs from CM team; home w/family today, outpatient f/u Discharge Plan Home Transportation Arrangement Family Referrals Initiated None needed Plan: Home w/family today, outpatient f/u. No CM needs LAMONT Haji
--- NOTE | 2021-10-08 11:41 | PC.NURSE ---
Pt A&O x3 this a.m. Reports minimal pain. Ambulating independently in the room. VSS, afebrile on RA. Soft collar in place. Dressing C/D/I. Good po intake and voiding. PA at bedside this a.m. clearing patient for discharge after OT and PT vanessa. PT/OT clearing patient for discharge home. He verbalizes understanding of discharge plan, medications, site care, activity, worsening symptoms and follow up care. MANAGER WASTEWATER escorts him via wheelchair to private vehicle with spouse this a.m. with all of his belongings.
== END 2021-10-08 11:35 | disposition home or self-care (01) ==
LOC: OR 07:49 → AC 07:55
PROVIDERS: Admitting Provider Orthopaedic Surgery Orthopaedic Surgery of the Spine; PCP Family Medicine; Referring Provider Family Medicine; Visit Provider Orthopaedic Surgery Orthopaedic Surgery of the Spine
PROC: (CPT 22551; principal; 2021-10-07 09:15)
DX: M48.02 Spinal stenosis, cervical region (principal); M43.12 Spondylolisthesis, cervical region; G56.03 Carpal tunnel syndrome, bilateral upper limbs; E03.9 Hypothyroidism, unspecified; I10 Essential (primary) hypertension; E78.5 Hyperlipidemia, unspecified
CPT/HCPCS: 22551; 22552; 22853 ×2; 36415; 72040; 76000; 82962; 85014; 85018; 97161; 97165; 97530; C1776; G0378; J0171; J0330; J0690; J1100; J1170; J2250; J2405; J2704; J3010; J3410

== ENCOUNTER 2021-12-11 11:11 | Emergency (ER) | payer OTHER, SELFPAY ==
[2021-10-07 14:32] VITALS: BMI 27.2
[2021-12-11 11:27] VITALS: BP 170/92; PULSE 67; RESP 18; TEMP 37.2; O2SAT 100
--- NOTE | 2021-12-11 12:13 | ED_ITS ---
HPI - Neck Pain/Injury General Chief Complaint: Neck Pain/Injury Stated Complaint: Needs MRI, head injury - sent by [facility] Time Seen by Provider: 12/11/21 12:07 Mode of arrival: Family Vehicle History of Present Illness HPI Narrative: The patient is a 66-year-old male with history of prior neck surgery presenting with worsening neck pain over last 6 days. He said he was lying in bed propped up on his shoulder, 1 is laid down next to him and they vomit heads. He heard a crack. Since then he has had increasing neck pain numbness tingling in both arms. It is not constant and comes and goes. He has taken Celebrex ibuprofen and other medication. However continues to happen and wanted to be checked out. He denies any loss of consciousness no nausea or vomiting no headaches or vision will changes. Related Data Home Medications Medication Instructions Recorded Confirmed levothyroxine 125 mcg tablet 125 mcg PO DAILY 01/01/21 10/07/21 celecoxib 200 mg capsule (Celebrex) 200 mg PO DAILY PRN 09/29/21 10/07/21 Previous Rx's Medication Instructions Recorded lisinopril 10 mg tablet See Rx Instructions .ROUTE 10/01/21 .COMPLEX #90 tab acetaminophen 500 mg capsule 500 mg PO Q4H PRN #90 cap MDD Max 10/08/21 3000 mg per day benzocaine 15 mg-menthol 3.6 mg 1 destinee PO Q4H PRN #16 ea 10/08/21 lozenges (Cepacol Sore Throat (benzocaine-menthol)) docusate sodium 100 mg capsule 100 mg PO BID PRN #20 cap 10/08/21 hydroxyzine pamoate 25 mg capsule 25 mg PO Q4HR PRN #30 cap 10/08/21 oxycodone 5 mg tablet 10 mg PO Q4H PRN #42 tab 10/08/21 gabapentin 300 mg capsule 300 mg PO BEDTIME #30 cap 12/11/21 hydrocodone 5 mg-acetaminophen 325 1 tab PO Q6H PRN #10 tab 12/11/21 mg tablet Allergies Allergy/AdvReac Type Severity Reaction Status Date / Time gold Au 198 Allergy Mild Gold Verified 12/11/21 11:34 fillings caused bleeding Review of Systems Review of Systems Narrative: GENERAL: Denies chills, fatigue, malaise, fever, sweats, travel HEENT: Denies sinus pain, ear pain, sore throat, difficulty swallowing, neck pain RESPIRATORY: Denies dyspnea, cough, wheezing, hemoptysis, sputum. CARDIOVASCULAR: Denies chest pain, palpitations, orthopnea, edema GASTROINTESTINAL: Denies nausea, vomiting, abdominal pain, diarrhea, constipation, melena. : Denies dysuria, frequency, incontinence, hematuria, urinary retention, flank pain. MUSCULOSKELETAL: See HPI SKIN: No rash, no erythema, no pruritus NEUROLOGIC: Denies weakness, dizziness, headache, numbness, change in speech, confusion PSYCHIATRIC: No concerning psychosocial issues. 12 point review of systems is negative except for those stated above and HPI Patient History Medical History Adverse reaction to COVID-19 vaccine (01/20/21) Bilateral carpal tunnel syndrome Cervical radiculopathy Cervical somatic dysfunction Erosion of terminal ileum HTN (hypertension) Hyperlipidemia, mixed Hypothyroidism (acquired) Neck pain of over 3 months duration Neck stiffness Nocturia associated with benign prostatic hyperplasia Spinal stenosis of cervical region Spondylolisthesis, cervical region Upper extremity somatic dysfunction Vaccine reaction Surgical History H/O hernia repair History of surgery Hx of tonsillectomy Family History Father Heart disease Mother Cancer Brother Cancer Other No pertinent family history Social History household members: spouse Smoking Status: Never smoker alcohol intake: former Smoking Status: Never smoker alcohol intake frequency: holidays/special occasions only Substance Use Type: does not use Exam Initial Vital Signs Initial Vital Signs: Vital Signs Temperature 98.9 F 12/11/21 11:27 Pulse Rate 67 12/11/21 11:27 Respiratory Rate 18 12/11/21 11:27 Blood Pressure 170/92 H 12/11/21 11:27 Pulse Oximetry 100 12/11/21 11:27 GENERAL: Well-appearing, well-nourished and in [no acute] distress. HEENT: Head atraumatic,EOMI, pupils reactive, face symmetric, [moist] mucous membranes NECK: Mild tenderness more on right than left full range of motion CARDIOVASCULAR: Regular rate and rhythm without murmurs, rubs or gallops. RESPIRATORY: Breath sounds equal bilaterally, no wheezes rales or rhonchi. EXTREMITIES: Normal range of motion, no clubbing or edema. Neurovascularly intact NEUROLOGICAL: Alert and oriented x4.Normal gait and speech. Child Life Assistant strength equal bilaterally, sensation intact SKIN: Warm, dry, no laceration, no petechiae, no rashes or lesions. Course Orders Ordered: ED Orders 12/11/21 12:22 CT cervical spine wo con Stat Vital Signs Vital signs: Vital Signs - 8 hr 12/11/21 11:27 Temperature 98.9 F Pulse Rate 67 Respiratory Rate 18 Blood Pressure 170/92 H Pulse Oximetry 100 MDM - Neck Pain/Injury Imaging Data CT - cervical spine: Radiologist's Impression: PROCEDURE:? CT CERVICAL SPINE WO CON ? INDICATIONS:? pain prior x1 week after injury surgery ? TECHNIQUE:? Noncontrast 3 mm thick sections acquired from the skull base to the T4 level. ?Sagittal and coronal reformats were then constructed.? For radiation dose reduction, the following was used:? automated exposure control, adjustment of mA and/or kV according to patient size.? ? COMPARISON:? [facility] [place], [place], XR CERVICAL SPINE 2 OR 3 VIEWS, 11/18/2021, 9:09. ? FINDINGS:? Image quality:? Excellent.? ? Bones:? C5-6 and C6-7 discectomy and fusion with anterior plate and screw hardware in good position.? There is disc space narrowing and hypertrophic facet joints noted at C7-T1 resulting in grade 1 anterior spondylolisthesis.? Degenerative retrolisthesis noted at C3-4 as well.? No evidence of fracture or traumatic malalignment no hardware failure.? Craniovertebral relationships are normal. ? Soft tissues:? Prevertebral soft tissues are normal in thickness.? No paravertebral hematomas.? No apical pneumothoraces.? ? ? IMPRESSION:? ? 1. No evidence of fracture or traumatic malalignment. ? 2. Anterior cervical discectomy and fusion at C5-6 and C6-7 with anterior plate and screw hardware in good position.? No hardware failure.? ? 3.? Degenerative C4-5 retrolisthesis and C7-T1 anterior listhesis. ? Approved by: Ray Flores M.D. on 12/11/2021 at 12:08? [facility] Narrative Medical decision making narrative: At this time patient has a low mechanism of injury but is having ongoing worsening pain for 1 week, intermittent neuropathy. Home PT cervical spine is negative. He actually has follow-up with S spinal surgeons this week. This time recommend home pain medication he will likely get an outpatient MRI soon. If symptoms worsen he should return. Discharge Plan Departure Patient Disposition: Home Clinical Impression: Cervical radiculopathy Instructions: Chronic Neck Pain Activity Restrictions/Additional Instructions: *You have been diagnosed with chronic neck pain, cervical radiculopathy *What to do: At this time pending her having an acute exacerbation of pain. If pain is not improving you may need outpatient MRI cover CT at this time is negative *Continue to take medications as directed Gabapentin 300 mg at night for nerve pain [place] 1 tablet every 6 hours needed for severe pain *Follow up with your primary care provider in 2-3 days or call [phone] *Return to ER if you should have increasing weakness, pain, any new, worsening or concerning symptoms CONTROLLED SUBSTANCE DISCHARGE (Narcotoic/benzodiazepine/Flexeril/Phenergan) 1. You have been prescribed narcotic medications, it does have acetaminophen/Tylenol/paracetamol in it, DO NOT TAKE MORE THAN 4,00mg in 24 hours of Tylenol. TRAMADOL DOES NOT CONTAIN TYLENOL 2. Please understand that we cannot provide further refills of narcotics, benzodiazepines or controlled substances through the ED and her pain management will need to be through your provider. 3. While on these medications you cannot drive or operate heavy machinery. 4. You cannot sign legal documents or perform any duties such as this. 5. As long as you're taking opiate pain medications he should also be taking a stool softener such as Colace, Dulcolax, MiraLAX or prune juice, to help avoid constipation. Prescriptions: New gabapentin 300 mg capsule 300 mg PO BEDTIME Qty: 30 0RF hydrocodone-acetaminophen 5-325 mg tablet 1 tab PO Q6H PRN (Reason: pain) Qty: 10 0RF No Action lisinopril 10 mg tablet See Rx Instructions .ROUTE .COMPLEX Qty: 90 0RF Dose Instruction: take 1 tablet by mouth once daily Rx Instructions: take 1 tablet by mouth once daily levothyroxine 125 mcg tablet 125 mcg PO DAILY 0RF celecoxib [Celebrex] 200 mg capsule 200 mg PO DAILY PRN (Reason: Pain) 0RF acetaminophen 500 mg capsule 500 mg PO Q4H MDD Max 3000 mg per day PRN (Reason: Pain, Mild (1-3)) Qty: 90 0RF Cepacol Sore Throat (jem-men) 15-3.6 mg Lozenge 1 destinee PO Q4H PRN (Reason: Sore Throat) Qty: 16 1RF docusate sodium 100 mg Capsule 100 mg PO BID PRN (Reason: Constipation from narcotic pain meds) Qty: 20 0RF hydroxyzine pamoate 25 mg Capsule 25 mg PO Q4HR PRN (Reason: pain, spams, nausea) Qty: 30 0RF oxycodone 5 mg Tablet 10 mg PO Q4H PRN (Reason: Pain, Severe (7-10)) Qty: 42 0RF Referrals: Tian Keene DO [Primary Care Provider] -
--- NOTE | 2021-12-11 12:22 | DI.CT.S_ITS ---
PROCEDURE: CT CERVICAL SPINE WO CON INDICATIONS: pain prior x1 week after injury surgery TECHNIQUE: Noncontrast 3 mm thick sections acquired from the skull base to the T4 level. Sagittal and coronal reformats were then constructed. For radiation dose reduction, the following was used: automated exposure control, adjustment of mA and/or kV according to patient size. COMPARISON: [facility] [place], [place], XR CERVICAL SPINE 2 OR 3 VIEWS, 11/18/2021, 9:09. FINDINGS: Image quality: Excellent. Bones: C5-6 and C6-7 discectomy and fusion with anterior plate and screw hardware in good position. There is disc space narrowing and hypertrophic facet joints noted at C7-T1 resulting in grade 1 anterior spondylolisthesis. Degenerative retrolisthesis noted at C3-4 as well. No evidence of fracture or traumatic malalignment no hardware failure. Craniovertebral relationships are normal. Soft tissues: Prevertebral soft tissues are normal in thickness. No paravertebral hematomas. No apical pneumothoraces. IMPRESSION: 1. No evidence of fracture or traumatic malalignment. 2. Anterior cervical discectomy and fusion at C5-6 and C6-7 with anterior plate and screw hardware in good position. No hardware failure. 3. Degenerative C4-5 retrolisthesis and C7-T1 anterior listhesis. Approved by: Ray Flores M.D. on 12/11/2021 at 12:08
== END 2021-12-11 14:07 | disposition home or self-care (01) ==
PROVIDERS: Emergency Provider Emergency Medicine; PCP Family Medicine
DX: M54.12 Radiculopathy, cervical region (principal)
CPT/HCPCS: 72125; 99283; 99284

== ENCOUNTER → 2022-01-08 11:17 | Outpatient (CLI) | payer MEDICARE, OTHER, SELFPAY ==
[2021-10-07 14:32] VITALS: BMI 27.2
[2022-01-08 12:20] LABS: Add Manual Diff / Slide Review NO; Basophils Absolute Auto 100 /uL (0-100); Basophils Percent Auto 0.9 % (0-2); Eosinophils Absolute Auto 200 /uL (0-450); Hematocrit 39.2 % (41-53); Hemoglobin 13.4 g/dL (13.5-17.5); Lymphocytes Absolute Auto 1800 /uL (1100-4500); Lymphocytes Percent Auto 26.1 % (25-40); Mean Corpuscular HGB Conc 34.2 % (30-36); Mean Corpuscular Hemoglobin 29.9 PG (26-34); Mean Corpuscular Volume 87.3 fL (80-100); Monocytes Absolute Auto 800 /uL (0-900); Monocytes Percent Auto 11.1 % (3-14); Neutrophils Absolute Auto 4100 /uL (1500-7000); Neutrophils Percent Auto 58.9 % (50-75); Platelet Count 199 X10^3/uL (150-400); Red Blood Cell Count 4.49 X10^6/uL (4.5-5.9); Red Cell Distribution Width 13.6 % (11.6-14.8); White Blood Cell Count 6.9 X10^3/uL (4.5-11.0)
[2022-01-08 12:53] LABS: Alanine Aminotransferase 18 IU/L (<50); Albumin 4.2 g/dL (3.5-5.0); Albumin Globulin Ratio 1.5 (1.0-2.8); Alkaline Phosphatase 66 U/L (38-126); Aspartate Aminotransferase 26 IU/L (17-59); BUN Creatinine Ratio 15.2 (6-22); Bilirubin Total 0.7 mg/dL (0.2-1.3); Blood Urea Nitrogen 22 mg/dL (9-20); Calcium 9.1 mg/dL (8.4-10.2); Carbon Dioxide 29 mmol/L (22-32); Chloride 105 mmol/L (98-107); Cholesterol 236 mg/dL (140-199); Estimated Glomerular Filt Rate 48.7 mL/min (>60); Globulin 2.8 g/dL (1.7-4.1); Glucose 91 mg/dL (80-110); HDL Cholesterol 52 mg/dL (40-60); HEMOLYSIS < 15 (0-50); LDL Cholesterol Calculated 155 mg/dL (<100); Potassium 4.5 mmol/L (3.4-5.1); Sodium 138 mmol/L (137-145); Triglycerides 144 mg/dL (35-150)
[2022-01-08 13:10] LABS: Free T4, Direct Thyroxine 1.29 ng/dL (0.78-2.19)
[2022-01-08 13:24] LABS: Thyroid Stimulating Hormone 9.52 uIU/mL (0.47-4.68)
== END ==
PROVIDERS: PCP Family Medicine; Referring Provider Family Medicine; Visit Provider Family Medicine
DX: E03.9 Hypothyroidism, unspecified (principal); E78.2 Mixed hyperlipidemia; I10 Essential (primary) hypertension
CPT/HCPCS: 36415; 80053; 80061; 84439; 84443; 84481; 85025

== ENCOUNTER 2022-03-17 00:05 | Emergency (ER) | payer MEDICARE, OTHER, SELFPAY ==
[2021-10-07 14:32] VITALS: BMI 27.2
[2022-03-17] VITALS (8 sets, daily range): BP systolic 106–145; BP diastolic 56–80; PULSE 79–99; RESP 18–23; TEMP 37.1; O2SAT 95–98; BMI 28.1
--- NOTE | 2022-03-17 01:18 | ED_ITS ---
HPI - URI/Sore Throat General Chief Complaint: Upper Respiratory Symptoms Stated Complaint: sob COVID + Time Seen by Provider: 03/17/22 00:25 Source: patient Mode of arrival: Ambulatory Limitations: no limitations History of Present Illness HPI Narrative: The patient complains of sore throat. He became ill 3 days ago with headache, sore throat and a mild cough. The headache is now improved. Despite the mild cough he has no difficulty breathing. He has no history of asthma or allergies. He is a nonsmoker. He tested positive for COVID-19 3 days ago, a repeat test next day was also positive. He has been prescribed Paxlovid for COVID-19. He comes in now with severe sore throat. He has mild hoarseness, he complains of difficulty swallowing. Over the past 3 days he has not utilized Tylenol or Advil. His gave him a Percocet before coming in [facility]. With headache and sore throat, he denies fever chills. He has no chest discomfort. He has no abdominal pain, or nausea. He is hydrating, he has normal urine output. He has no dysuria. Related Data Previous Rx's Medication Instructions Recorded lisinopril 10 mg tablet See Rx Instructions .ROUTE 10/01/21 .COMPLEX #90 tab acetaminophen 500 mg capsule 500 mg PO Q4H PRN #90 cap MDD Max 10/08/21 3000 mg per day docusate sodium 100 mg capsule 100 mg PO BID PRN #20 cap 10/08/21 levothyroxine 175 mcg tablet 175 mcg PO DAILY #90 tab 01/11/22 meloxicam 15 mg tablet 15 mg PO DAILY #90 tab 01/11/22 nirmatrelvir 300 mg (150 mg x See Rx Instructions PO .COMPLEX 03/16/22 2)-ritonavir 100 mg tablet (EUA) #30 tab (Paxlovid 300 mg () Allergies Allergy/AdvReac Type Severity Reaction Status Date / Time gold Au 198 Allergy Mild Gold Verified 12/11/21 11:34 fillings caused bleeding Review of Systems Review of Systems ROS Unobtainable: All systems reviewed & are unremarkable except as noted in HPI and below Patient History Medical History Adverse reaction to COVID-19 vaccine (01/20/21) Bilateral carpal tunnel syndrome Cervical radiculopathy Cervical somatic dysfunction Chronic kidney disease (CKD) Erosion of terminal ileum HTN (hypertension) Hyperlipidemia, mixed Hypothyroidism (acquired) Neck pain of over 3 months duration Neck stiffness Nocturia associated with benign prostatic hyperplasia Spinal stenosis of cervical region Spondylolisthesis, cervical region Upper extremity somatic dysfunction Vaccine reaction Surgical History H/O hernia repair History of surgery Hx of tonsillectomy Family History Father Heart disease Mother Cancer Brother Cancer Other No pertinent family history Social History household members: spouse Smoking Status: Never smoker alcohol intake: former Smoking Status: Never smoker alcohol intake frequency: holidays/special occasions only Substance Use Type: does not use Exam Initial Vital Signs Initial Vital Signs: Vital Signs Temperature 98.8 F 03/17/22 00:15 Pulse Rate 96 H 03/17/22 00:15 Respiratory Rate 23 03/17/22 00:15 Blood Pressure 134/70 03/17/22 00:15 Pulse Oximetry 98 03/17/22 00:15 Const General: cooperative, healthy appearing and disheveled HENMT Head: normal to inspection, normocephalic and atraumatic Nose: external nose normal and nares normal Face and sinus: normal facial exam and sinuses nontender Mouth: oral mucosae normal and lip normal Other HENMT:: Erythema to the uvula and the posterior oropharynx. Tonsils are normal in size. There is no exudate. Eyes General: Yes appearance normal, both eyes and all related structures Neck Neck: No lymphadenopathy Resp Effort & Inspection: normal respiratory effort Auscultation: clear to auscultation bilaterally Cardio Rate: regular rate Rhythm: regular rhythm Heart Sounds: S1 normal, S2 normal and no murmurs GI Palpation: soft and No tender Back/Spine/Pelvis Back: normal to inspection Skin General: no rashes or lesions noted Neuro General: patient alert, patient awake, patient oriented x3 and no focal motor deficits Extrem General: normal to inspection Psych Mental Status: mental status grossly normal Course Course Course Narrative: The patient received Toradol and prednisone for his sore throat. He is feeling much better. Vital Signs Vital signs: Vital Signs - 8 hr 03/17/22 00:15 Temperature 98.8 F Pulse Rate 96 H Respiratory Rate 23 Blood Pressure 134/70 Pulse Oximetry 98 Discharge Plan Departure Patient Disposition: Home Clinical Impression: COVID-19, Sore throat Activity Restrictions/Additional Instructions: Tylenol 2 tablets every 4 hours, or Advil 3 tablets every 6 hours as needed for sore throat. I suspect your pain will decrease significantly over the next 24 hours. Follow-up with your doctor or return here if symptoms escalate. Prescriptions: No Action lisinopril 10 mg tablet See Rx Instructions .ROUTE .COMPLEX Qty: 90 0RF Dose Instruction: take 1 tablet by mouth once daily Rx Instructions: take 1 tablet by mouth once daily Paxlovid (EUA) 150 mg x 2- 100 mg tablet See Rx Instructions PO .COMPLEX Qty: 30 0RF Rx Instructions: take TWO 150 mg tablets of nirmatrelvir with ONE 100 mg tablet of ritonavir twice daily for 5 days PO levothyroxine 175 mcg tablet 175 mcg PO DAILY Qty: 90 1RF meloxicam 15 mg tablet 15 mg PO DAILY Qty: 90 3RF acetaminophen 500 mg capsule 500 mg PO Q4H MDD Max 3000 mg per day PRN (Reason: Pain, Mild (1-3)) Qty: 90 0RF docusate sodium 100 mg Capsule 100 mg PO BID PRN (Reason: Constipation from narcotic pain meds) Qty: 20 0RF Referrals: Tian Keene DO [Primary Care Provider] -
[2022-03-17] MEDS: predniSONE 20 MG TABLET 60 MG PO (01:38)
[2022-03-17] MEDS: KETOROLAC 30 MG/ML VIAL IM (01:38)
== END 2022-03-17 02:21 | disposition home or self-care (01) ==
PROVIDERS: Emergency Provider Emergency Medicine; PCP Family Medicine
DX: U07.1 COVID-19 (principal); J02.9 Acute pharyngitis, unspecified; R05.9 Cough, unspecified
CPT/HCPCS: 96372; 99283; J1885

== ENCOUNTER 2022-03-27 14:01 | Emergency (ER) | payer MEDICARE, OTHER, SELFPAY ==
[2021-10-07 14:32] VITALS: BMI 27.2
[2022-03-27 14:04] VITALS: BP 169/89; PULSE 87; RESP 20; TEMP 36.7; O2SAT 96
--- NOTE | 2022-03-27 14:08 | DI.RAD.S_ITS ---
PROCEDURE: XR FINGER LT MIN 2V INDICATIONS: table saw injury TECHNIQUE: AP hand, 2 views of the 2nd finger(s) acquired. COMPARISON: None. FINDINGS: Bones: Amputation of the distal tuft of the distal phalanx of the 2nd digit. There are a few small remaining bony fragments within the soft tissues adjacent to the distal tuft. Linear lucency traverses the distal phalanx of the digit. Soft tissues: No suspicious soft tissue calcifications. IMPRESSION: 1. Amputation of distal tuft of the 2nd digit as above. 2. Findings suggestive of a minimally displaced fracture of the distal phalanx of the 3rd digit. This may also represent a vascular groove. Clinical correlation recommended. Dictated by: Lluvia Rios M.D. on 03/27/2022 at 14:19 Approved by: Lluvia Rios M.D. on 03/27/2022 at 14:20
[2022-03-27] MEDS: TET,DIPH,PERTUSS(ACELL),VAC/PF 0.5 ML SYRINGE IM (14:39)
[2022-03-27] MEDS: LIDOCAINE 1% (PF) 5 ML INJ (15:59)
[2022-03-27] MEDS: cephALEXin 250 MG CAPSULE 500 MG PO (16:37)
--- NOTE | 2022-03-27 16:45 | ED.WOUNDLAC ---
HPI - Wound/Laceration General Chief Complaint: Wound/Laceration Stated Complaint: cut finger with table saw Time Seen by Provider: 03/27/22 15:36 Source: patient Mode of arrival: Ambulatory Limitations: no limitations History of Present Illness HPI narrative: Patient was cutting material with a table saw at home about 1 hour prior to arrival here. Strands of mature is cutting grabbed his left hand, yanking his left index finger to the saw blade he has a tip to the tip of the left index finger and into the nail bed. He has numbness to the tip of the finger. There is oozing of blood. The nail bed is lacerated. He has full motion at the IP joint, tendons are intact. He has no other injuries. He is right-hand dominant. Tetanus is up-to-date. He denies recent illness. No URI symptoms. No fever. Related Data Previous Rx's Medication Instructions Recorded lisinopril 10 mg tablet See Rx Instructions .ROUTE 10/01/21 .COMPLEX #90 tab acetaminophen 500 mg capsule 500 mg PO Q4H PRN #90 cap MDD Max 10/08/21 3000 mg per day docusate sodium 100 mg capsule 100 mg PO BID PRN #20 cap 10/08/21 levothyroxine 175 mcg tablet 175 mcg PO DAILY #90 tab 01/11/22 meloxicam 15 mg tablet 15 mg PO DAILY #90 tab 01/11/22 nirmatrelvir 300 mg (150 mg x See Rx Instructions PO .COMPLEX 03/16/22 2)-ritonavir 100 mg tablet (EUA) #30 tab (Paxlovid 300 mg () cephalexin 500 mg capsule 500 mg PO Q8H 7 Days #21 cap 03/27/22 Allergies Allergy/AdvReac Type Severity Reaction Status Date / Time gold Au 198 Allergy Mild Gold Verified 12/11/21 11:34 fillings caused bleeding Review of Systems Review of Systems ROS Unobtainable: All systems reviewed & are unremarkable except as noted in HPI and below Patient History Medical History (Updated 03/27/22 @ 16:58 by Jimbo Jonas MD) Adverse reaction to COVID-19 vaccine (01/20/21) Bilateral carpal tunnel syndrome Cervical radiculopathy Cervical somatic dysfunction Cervical vertebral fusion Chronic kidney disease (CKD) Erosion of terminal ileum HTN (hypertension) Hyperlipidemia, mixed Hypothyroidism (acquired) Neck pain of over 3 months duration Neck stiffness Nocturia associated with benign prostatic hyperplasia Spinal stenosis of cervical region Spondylolisthesis, cervical region Upper extremity somatic dysfunction Vaccine reaction Surgical History H/O hernia repair History of surgery Hx of tonsillectomy Family History Father Heart disease Mother Cancer Brother Cancer Other No pertinent family history Social History household members: spouse Smoking Status: Never smoker alcohol intake: former Smoking Status: Never smoker alcohol intake frequency: holidays/special occasions only Substance Use Type: does not use Exam Initial Vital Signs Initial Vital Signs: Vital Signs Temperature 98.0 F 03/27/22 14:04 Pulse Rate 87 03/27/22 14:04 Respiratory Rate 20 03/27/22 14:04 Blood Pressure 169/89 H 03/27/22 14:04 Pulse Oximetry 96 03/27/22 14:04 Const General: cooperative, healthy appearing, comfortable, well developed and well groomed Neuro General: patient alert, patient awake and patient oriented x3 Other: Normal motor and sensory exam of the left index finger. Extrem Other: Irregular 1.5 cm laceration to the tip of the index finger, extending senior living into the central nailbed. The flap of the wound is retracted, there is no foreign body present. There is a fracture/avulsion to the tip of the tuft. Procedures Laceration Repair Laceration 1: Site: hand (Tip of left index finger into the nail bed.) Side (If applicable): left Size (cm): 1.5 Description: stellate and flap Depth: simple, single layer Local Anesthetic: lidocaine 1% Amount of anesthesia used (mL): 3 Pre-repair: wound explored, irrigated extensively and deep structures intact Skin layer closed with: nylon Skin layer suture size: 5-0 Number of sutures: 4 Technique: simple, interrupted Course Orders Ordered: ED Orders 03/27/22 14:08 XR finger LT min 2V Stat Discontinued Medications Cephalexin HCl (Cephalexin 250 Mg Capsule) 500 mg PO NOW ONE Stop: 03/27/22 16:20 Last Admin: 03/27/22 16:37 Dose: 500 mg Documented by: KBROWNE Diphtheria/Tetanus/Acell Pertussis (Tet,Diph,Pertuss(Acell),Vac/Pf 0.5 Ml Syringe) 0.5 ml IM .ONCE ONE Stop: 03/27/22 14:09 Last Admin: 03/27/22 14:39 Dose: 0.5 ml Documented by: VAIBHAV Lidocaine HCl (Lidocaine 1% (Pf) 5 Ml) 5 ml INJ NOW ONE Stop: 03/27/22 15:45 Last Admin: 03/27/22 15:59 Dose: 5 ml Documented by: VAIBHAV Lidocaine/Epinephrine (Lidocaine 2% W/Epi Inj) 4 ml INJ INTRA-OP ONE Stop: 03/27/22 15:33 Last Admin: 03/27/22 15:48 Dose: Not Given Documented by: MERCEDES Vital Signs Vital signs: Vital Signs - 8 hr 03/27/22 14:04 Temperature 98.0 F Pulse Rate 87 Respiratory Rate 20 Blood Pressure 169/89 H Pulse Oximetry 96 MDM - Wound/Laceration Imaging Data Left finger x-ray: Radiologist's Impression: Amputation to the tuft of the left index finger. Discharge Plan Departure Patient Disposition: Home Clinical Impression: Laceration of left index finger, Open fracture of tuft of distal phalanx of finger Instructions: DI for Finger Fracture Activity Restrictions/Additional Instructions: Keflex 3 times daily for 7 days. Tylenol or Advil as needed for pain. Keep the bandage in place for 2 days. After the bandages off, you may bathe the finger normally. Cover the finger when physically active. See your doctor about suture removal in 10 days. You have 2 sutures in the flesh of the finger, and two through the fingernail. Return here as needed. Prescriptions: New cephalexin 500 mg capsule 500 mg PO Q8H 7 Days Qty: 21 0RF No Action lisinopril 10 mg tablet See Rx Instructions .ROUTE .COMPLEX Qty: 90 0RF Dose Instruction: take 1 tablet by mouth once daily Rx Instructions: take 1 tablet by mouth once daily Paxlovid (EUA) 150 mg x 2- 100 mg tablet See Rx Instructions PO .COMPLEX Qty: 30 0RF Rx Instructions: take TWO 150 mg tablets of nirmatrelvir with ONE 100 mg tablet of ritonavir twice daily for 5 days PO levothyroxine 175 mcg tablet 175 mcg PO DAILY Qty: 90 1RF meloxicam 15 mg tablet 15 mg PO DAILY Qty: 90 3RF acetaminophen 500 mg capsule 500 mg PO Q4H MDD Max 3000 mg per day PRN (Reason: Pain, Mild (1-3)) Qty: 90 0RF docusate sodium 100 mg Capsule 100 mg PO BID PRN (Reason: Constipation from narcotic pain meds) Qty: 20 0RF Referrals: Tian Keene DO [Primary Care Provider] -
[2022-03-27 17:00] VITALS: BP 160/79; PULSE 72; RESP 18; O2SAT 98
== END 2022-03-27 17:01 | disposition home or self-care (01) ==
PROVIDERS: Emergency Provider Emergency Medicine; PCP Family Medicine
DX: S62.631A Displaced fracture of distal phalanx of left index finger, initial encounter for closed fracture (principal); S61.311A Laceration without foreign body of left index finger with damage to nail, initial encounter; W27.0XXA Contact with workbench tool, initial encounter; Z23 Encounter for immunization
CPT/HCPCS: 12001; 73140; 90471; 99283; 90715

== ENCOUNTER → 2022-05-04 09:04 | Outpatient (CLI) | payer MEDICARE, OTHER, SELFPAY ==
[2022-04-28 14:36] VITALS: BMI 27.2
[2022-05-04 10:34] LABS: BUN Creatinine Ratio 14.3 (6-22); Blood Urea Nitrogen 20 mg/dL (9-20); Carbon Dioxide 27 mmol/L (22-32); Chloride 104 mmol/L (98-107); Cholesterol 213 mg/dL (140-199); Estimated Glomerular Filt Rate 55 mL/min (>60); Glucose 96 mg/dL (80-110); HDL Cholesterol 48 mg/dL (40-60); HEMOLYSIS < 15 (0-50); LDL Cholesterol Calculated 137 mg/dL (<100); Potassium 4.6 mmol/L (3.4-5.1); Sodium 137 mmol/L (137-145); Triglycerides 141 mg/dL (35-150)
[2022-05-04 10:46] LABS: Free T3, Triiodothyronine Free 3.77 pg/mL (2.77-5.27); Free T4, Direct Thyroxine 1.99 ng/dL (0.78-2.19)
[2022-05-04 10:59] LABS: Thyroid Stimulating Hormone 0.199 uIU/mL (0.47-4.68)
== END ==
PROVIDERS: PCP Family Medicine; Referring Provider Family Medicine; Visit Provider Family Medicine
DX: E03.9 Hypothyroidism, unspecified (principal); E78.2 Mixed hyperlipidemia; N18.31 Chronic kidney disease, stage 3a
CPT/HCPCS: 36415; 80048; 80061; 84439; 84443; 84481

== ENCOUNTER → 2022-08-09 15:49 | Outpatient (CLI) | payer MEDICARE, OTHER, SELFPAY ==
[2022-04-28 14:36] VITALS: BMI 27.2
[2022-08-09 17:49] LABS: BUN Creatinine Ratio 17.8 (6-22); Blood Urea Nitrogen 23 mg/dL (9-20); Calcium 8.8 mg/dL (8.4-10.2); Carbon Dioxide 26 mmol/L (22-32); Chloride 105 mmol/L (98-107); Estimated Glomerular Filt Rate > 60 mL/min (>60); Glucose 86 mg/dL (80-110); HEMOLYSIS 16 (0-50); Potassium 4.6 mmol/L (3.4-5.1); Sodium 139 mmol/L (137-145)
== END ==
PROVIDERS: PCP Family Medicine; Referring Provider Surgery; Visit Provider Surgery
DX: R10.31 Right lower quadrant pain (principal); R11.0 Nausea
CPT/HCPCS: 36415; 80048; 99214

== ENCOUNTER → 2022-08-15 10:55 | Outpatient (CLI) | payer MEDICARE, OTHER, SELFPAY ==
[2022-04-28 14:36] VITALS: BMI 27.2
--- NOTE | 2022-08-15 10:57 | DI.CT.S_ITS ---
PROCEDURE: CT ABDOMEN PELVIS W CON INDICATIONS: abdominal pain and nausea TECHNIQUE: After the administration of oral and IV contrast, axial sections were acquired from the lung bases to the pubic symphysis. Coronal and sagittal reformats were performed. For radiation dose reduction, the following was used: automated exposure control, adjustment of mA and/or kV according to patient size. COMPARISON: None. FINDINGS: Image quality: Excellent. Lung bases: Unremarkable. Heart: No significant findings. ABDOMEN: Liver: Several thin-walled cystic and lobulated hepatic hypodensities, the largest in segment 3 measuring 2.9 cm. Most likely these are cysts or benign hemangiomas. No suspicious enhancing liver lesion. Gallbladder: Normal wall thickness. No visible calcification. Biliary ducts: Nondilated. Pancreas: Normal. Spleen: Normal size. No nodules. Adrenal Glands: No masses. Kidneys and Ureters: Kidneys are normal size and demonstrate uniform enhancement. There is chronic appearing prominence of the right extrarenal pelvis and moderate hydronephrosis. Dependently within the renal pelvis are two stellate calculi measuring 1.0 cm and 0.9 cm with Hounsfield units of 1245 and 1031 respectively. The medial wall of the renal pelvis is slightly thickened. Distally the right ureter is nondilated and without calculi. Left-sided collecting system is normal. Small left upper pole cortical cyst. No perinephric inflammation. Stomach and Bowel: There is a contrast, debris, and air containing duodenal diverticulum arising medially from the 2nd portion indenting on the pancreas. The stomach and remainder of the small bowel loops are unremarkable. Moderate diverticulosis and wall thickening of the proximal sigmoid colon. The appendix is normal. Peritoneum: No abnormal intraperitoneal fluid. No free air. Ventral Wall: No evidence of umbilical or other ventral wall hernias. Abdominal Nodes: No retroperitoneal or mesenteric adenopathy by size criteria. Vessels: Aorta and inferior vena cava are normal in size. PELVIS: Pelvic Organs: Normal size prostate gland and seminal vesicles. Bladder: No pelvic adenopathy normal wall thickness. No stones. Pelvic Nodes: No adenopathy. Miscellaneous: No inguinal hernias are seen. Bones: Degenerative disc disease L4-5 and L5-S1 with vacuum phenomenon. IMPRESSION: 1. Two spiculated chronic appearing right renal pelvic calculi which are layering dependently and nonobstructing at this point. These may be mobile and causing symptoms. 2. Right ureter is nondilated. There may be a partial UPJ obstruction resulting in the extrarenal pelvic dilatation and mild chronic appearing right hydronephrosis. 3. Mild wall thickening and diverticular changes in the proximal sigmoid suggesting chronic recurrent diverticulitis. No acute diverticulitis. 4. Hepatic cysts. Dictated by: Geri Cleary M.D. on 08/15/2022 at 17:55 Approved by: Geri Cleary M.D. on 08/15/2022 at 18:09
== END ==
PROVIDERS: PCP Family Medicine; Referring Provider Surgery; Visit Provider Surgery
DX: N20.0 Calculus of kidney (principal); N13.30 Unspecified hydronephrosis; K76.89 Other specified diseases of liver; K57.30 Diverticulosis of large intestine without perforation or abscess without bleeding; R10.31 Right lower quadrant pain; R11.0 Nausea
CPT/HCPCS: 74177; Q9967

== ENCOUNTER → 2023-04-26 11:54 | Outpatient (CLI) | payer MEDICARE, OTHER, SELFPAY ==
[2022-04-28 14:36] VITALS: BMI 27.2
[2023-04-26 12:54] LABS: Add Manual Diff / Slide Review NO; Basophils Absolute Auto 100 /uL (0-100); Eosinophils Absolute Auto 200 /uL (0-450); Eosinophils Percent Auto 3.2 % (2-4); Hematocrit 38.9 % (41-53); Hemoglobin 13.3 g/dL (13.5-17.5); Lymphocytes Absolute Auto 1700 /uL (1100-4500); Lymphocytes Percent Auto 26.3 % (25-40); Mean Corpuscular HGB Conc 34.4 % (30-36); Mean Corpuscular Hemoglobin 29.9 PG (26-34); Mean Corpuscular Volume 86.9 fL (80-100); Monocytes Absolute Auto 800 /uL (0-900); Monocytes Percent Auto 12.7 % (3-14); Neutrophils Absolute Auto 3700 /uL (1500-7000); Neutrophils Percent Auto 56.8 % (50-75); Platelet Count 199 X10^3/uL (150-400); Red Blood Cell Count 4.47 X10^6/uL (4.5-5.9); Red Cell Distribution Width 12.9 % (11.6-14.8); White Blood Cell Count 6.4 X10^3/uL (4.5-11.0)
[2023-04-26 13:23] LABS: Alanine Aminotransferase 21 IU/L (<50); Albumin 4.4 g/dL (3.5-5.0); Albumin Globulin Ratio 1.4 (1.0-2.8); Alkaline Phosphatase 71 U/L (38-126); Aspartate Aminotransferase 25 IU/L (17-59); BUN Creatinine Ratio 16.7 (6-22); Bilirubin Total 0.8 mg/dL (0.2-1.3); Blood Urea Nitrogen 21 mg/dL (9-20); Calcium 9.1 mg/dL (8.4-10.2); Carbon Dioxide 29 mmol/L (22-32); Chloride 104 mmol/L (98-107); Cholesterol 221 mg/dL (140-199); Estimated Glomerular Filt Rate > 60 mL/min (>60); Globulin 3.1 g/dL (1.7-4.1); Glucose 96 mg/dL (80-110); HDL Cholesterol 45 mg/dL (40-60); HEMOLYSIS < 15 (0-50); LDL Cholesterol Calculated 140 mg/dL (<100); Potassium 4.3 mmol/L (3.4-5.1); Sodium 139 mmol/L (137-145); Total Protein 7.5 g/dL (6.3-8.2); Triglycerides 182 mg/dL (35-150)
[2023-04-26 13:39] LABS: Free T3, Triiodothyronine Free 5.59 pg/mL (2.77-5.27); Free T4, Direct Thyroxine 2.03 ng/dL (0.78-2.19)
[2023-04-26 13:53] LABS: Thyroid Stimulating Hormone 0.145 uIU/mL (0.47-4.68)
== END ==
PROVIDERS: PCP Family Medicine; Referring Provider Family Medicine; Visit Provider Family Medicine
DX: E03.9 Hypothyroidism, unspecified (principal); E78.2 Mixed hyperlipidemia; I10 Essential (primary) hypertension; N18.31 Chronic kidney disease, stage 3a
CPT/HCPCS: 36415; 80053; 80061; 84439; 84443; 84481; 85025

== ENCOUNTER → 2023-08-31 09:55 | Outpatient (CLI) | payer MEDICARE, OTHER, SELFPAY ==
[2022-04-28 14:36] VITALS: BMI 27.2
[2023-08-31 11:31] LABS: Cholesterol 234 mg/dL (140-199); HDL Cholesterol 50 mg/dL (40-60); LDL Cholesterol Calculated 161 mg/dL (<100); Triglycerides 114 mg/dL (35-150)
[2023-08-31 12:01] LABS: TSH w/ Reflex to FT4 4.96 uIU/mL (0.47-4.68)
[2023-08-31 12:28] LABS: Free T4, Direct Thyroxine 1.86 ng/dL (0.78-2.19)
== END ==
PROVIDERS: PCP Family Medicine; Referring Provider Family Medicine; Visit Provider Family Medicine
DX: E78.2 Mixed hyperlipidemia (principal); E03.9 Hypothyroidism, unspecified
CPT/HCPCS: 36415; 80061; 84439; 84443

== ENCOUNTER → 2023-11-29 14:49 | Outpatient (CLI) | payer MEDICARE, OTHER, SELFPAY ==
[2022-04-28 14:36] VITALS: BMI 27.2
[2023-11-29 15:17] LABS: Add Manual Diff / Slide Review NO; Basophils Absolute Auto 100 /uL (0-100); Basophils Percent Auto 1.4 % (0-2); Eosinophils Absolute Auto 200 /uL (0-450); Eosinophils Percent Auto 3.5 % (2-4); Hematocrit 38.4 % (41-53); Hemoglobin 13.2 g/dL (13.5-17.5); Lymphocytes Absolute Auto 1400 /uL (1100-4500); Lymphocytes Percent Auto 22.2 % (25-40); Mean Corpuscular HGB Conc 34.3 % (30-36); Mean Corpuscular Hemoglobin 29.8 PG (26-34); Mean Corpuscular Volume 86.7 fL (80-100); Monocytes Absolute Auto 700 /uL (0-900); Monocytes Percent Auto 11.7 % (3-14); Neutrophils Absolute Auto 3900 /uL (1500-7000); Neutrophils Percent Auto 61.2 % (50-75); Platelet Count 193 X10^3/uL (150-400); Red Blood Cell Count 4.43 X10^6/uL (4.5-5.9); Red Cell Distribution Width 13.2 % (11.6-14.8); White Blood Cell Count 6.3 X10^3/uL (4.5-11.0)
[2023-11-29 15:47] LABS: Alanine Aminotransferase 20 IU/L (<50); Albumin 4.2 g/dL (3.5-5.0); Albumin Globulin Ratio 1.4 (1.0-2.8); Alkaline Phosphatase 58 U/L (38-126); Aspartate Aminotransferase 28 IU/L (17-59); BUN Creatinine Ratio 14.8 (6-22); Bilirubin Total 0.8 mg/dL (0.2-1.3); Blood Urea Nitrogen 22 mg/dL (9-20); Calcium 9.3 mg/dL (8.4-10.2); Carbon Dioxide 27 mmol/L (22-32); Chloride 104 mmol/L (98-107); Cholesterol 231 mg/dL (140-199); Estimated Glomerular Filt Rate 51 mL/min (>60); Glucose 87 mg/dL (80-110); HDL Cholesterol 53 mg/dL (40-60); HEMOLYSIS < 15 (0-50); LDL Cholesterol Calculated 138 mg/dL (<100); Potassium 4.1 mmol/L (3.4-5.1); Sodium 137 mmol/L (137-145); Total Protein 7.2 g/dL (6.3-8.2); Triglycerides 202 mg/dL (35-150)
[2023-11-29 15:59] LABS: Free T3, Triiodothyronine Free 3.75 pg/mL (2.77-5.27); Free T4, Direct Thyroxine 0.96 ng/dL (0.78-2.19)
[2023-11-29 16:13] LABS: Thyroid Stimulating Hormone 5.74 uIU/mL (0.47-4.68)
[2023-11-29 19:38] LABS: Creatinine Urine Random 106.3 mg/dL
[2023-11-29 19:42] LABS: Microalbumi Creatinin Ratio Ur 24.4 ug/mg CR (<30); Microalbumin Urine Random 2.6 mg/dL (0-1.6)
[2023-11-30 22:43] LABS: Thyroid Peroxidase Antibodies 16 IU/mL (0-34)
== END ==
PROVIDERS: PCP Family Medicine; Referring Provider Family Medicine; Visit Provider Family Medicine
DX: N40.1 Benign prostatic hyperplasia with lower urinary tract symptoms (principal); N13.8 Other obstructive and reflux uropathy; I10 Essential (primary) hypertension; E78.2 Mixed hyperlipidemia; E03.9 Hypothyroidism, unspecified
CPT/HCPCS: 36415; 80053; 80061; 82043; 82570; 84439; 84443; 84481; 85025; 86376

== ENCOUNTER → 2023-12-27 10:19 | Outpatient (CLI) | payer MEDICARE, OTHER, SELFPAY ==
[2022-04-28 14:36] VITALS: BMI 27.2
[2023-12-27 11:22] LABS: Alanine Aminotransferase 20 IU/L (<50); Albumin 4.4 g/dL (3.5-5.0); Albumin Globulin Ratio 1.3 (1.0-2.8); Alkaline Phosphatase 73 U/L (38-126); Aspartate Aminotransferase 28 IU/L (17-59); BUN Creatinine Ratio 12.9 (6-22); Bilirubin Total 0.8 mg/dL (0.2-1.3); Blood Urea Nitrogen 17 mg/dL (9-20); Calcium 9.1 mg/dL (8.4-10.2); Carbon Dioxide 28 mmol/L (22-32); Chloride 104 mmol/L (98-107); Cholesterol 240 mg/dL (140-199); Estimated Glomerular Filt Rate 59 mL/min (>60); Globulin 3.5 g/dL (1.7-4.1); Glucose 95 mg/dL (80-110); HEMOLYSIS < 15 (0-50); Potassium 4.7 mmol/L (3.4-5.1); Sodium 139 mmol/L (137-145); Total Protein 7.9 g/dL (6.3-8.2); Triglycerides 183 mg/dL (35-150)
[2023-12-27 11:55] LABS: TSH w/ Reflex to FT4 7.08 uIU/mL (0.47-4.68)
[2023-12-27 12:28] LABS: Free T4, Direct Thyroxine 1.66 ng/dL (0.78-2.19); HDL Cholesterol 46 mg/dL (40-60); LDL Cholesterol Calculated 157 mg/dL (<100)
== END ==
PROVIDERS: PCP Family Medicine; Referring Provider Family Medicine; Visit Provider Family Medicine
DX: E78.2 Mixed hyperlipidemia (principal); N18.9 Chronic kidney disease, unspecified; E03.9 Hypothyroidism, unspecified
CPT/HCPCS: 36415; 80053; 80061; 84439; 84443

== ENCOUNTER → 2024-04-01 09:06 | Outpatient (CLI) | payer MEDICARE, OTHER, SELFPAY ==
[2024-01-09 08:32] VITALS: BMI 27.2
[2024-04-01 10:43] LABS: High Sensitivity CRP - Cardiac 3.6 mg/L (1.0-3.0)
[2024-04-01 11:33] LABS: Free T4, Direct Thyroxine 1.03 ng/dL (0.78-2.19)
[2024-04-02 06:52] LABS: Homocysteine 16.1 umol/L (0.0-17.2)
== END ==
PROVIDERS: PCP Family Medicine; Referring Provider Family Medicine; Visit Provider Family Medicine
DX: E78.2 Mixed hyperlipidemia (principal); I10 Essential (primary) hypertension; E03.9 Hypothyroidism, unspecified
CPT/HCPCS: 36415; 80061; 83090; 83704; 83721; 84439; 84443; 86140

== ENCOUNTER → 2024-06-27 08:58 | Outpatient (CLI) | payer MEDICARE, OTHER, SELFPAY ==
[2024-01-09 08:32] VITALS: BMI 27.2
[2024-06-27 10:05] LABS: Add Manual Diff / Slide Review NO; Basophils Absolute Auto 100 /uL (0-100); Basophils Percent Auto 0.9 % (0-2); Eosinophils Absolute Auto 200 /uL (0-450); Eosinophils Percent Auto 3.6 % (2-4); Hematocrit 40.3 % (41-53); Hemoglobin 13.9 g/dL (13.5-17.5); Lymphocytes Absolute Auto 1500 /uL (1100-4500); Mean Corpuscular HGB Conc 34.5 % (30-36); Mean Corpuscular Hemoglobin 29.9 PG (26-34); Mean Corpuscular Volume 86.8 fL (80-100); Monocytes Absolute Auto 800 /uL (0-900); Neutrophils Absolute Auto 3500 /uL (1500-7000); Neutrophils Percent Auto 58.5 % (50-75); Platelet Count 173 X10^3/uL (150-400); Red Blood Cell Count 4.64 X10^6/uL (4.5-5.9); Red Cell Distribution Width 13.2 % (11.6-14.8); White Blood Cell Count 6.1 X10^3/uL (4.5-11.0)
[2024-06-27 10:46] LABS: BUN Creatinine Ratio 13.7 (6-22); Blood Urea Nitrogen 21 mg/dL (9-20); C-Reactive Protein Quant < 0.5 mg/dL (<1.0); Calcium 9.2 mg/dL (8.4-10.2); Carbon Dioxide 26 mmol/L (22-32); Chloride 105 mmol/L (98-107); Estimated Glomerular Filt Rate 49 mL/min (>60); Glucose 97 mg/dL (80-110); HEMOLYSIS < 15 (0-50); Potassium 4.7 mmol/L (3.4-5.1); Sodium 139 mmol/L (137-145)
[2024-06-27 10:49] LABS: Erythrocyte Sedimentation Rate 11 MM/HR (0-15)
== END ==
PROVIDERS: PCP Family Medicine; Referring Provider Student in an Organized Health Care Education/Training Program; Visit Provider Student in an Organized Health Care Education/Training Program
DX: R14.3 Flatulence (principal); R19.5 Other fecal abnormalities
CPT/HCPCS: 36415; 80048; 85025; 85651; 86140

== ENCOUNTER → 2024-06-28 09:35 | Outpatient (CLI) | payer MEDICARE, OTHER, SELFPAY ==
[2024-01-09 08:32] VITALS: BMI 27.2
== END ==
PROVIDERS: PCP Family Medicine; Referring Provider Student in an Organized Health Care Education/Training Program; Visit Provider Student in an Organized Health Care Education/Training Program
DX: R14.3 Flatulence (principal); R19.5 Other fecal abnormalities
CPT/HCPCS: 82656; 83993; 87177

== ENCOUNTER → 2024-08-20 12:05 | Outpatient (CLI) | payer MEDICARE, OTHER, SELFPAY ==
[2024-01-09 08:32] VITALS: BMI 27.2
[2024-08-20 13:51] LABS: Cholesterol 250 mg/dL (140-199); HDL Cholesterol 44 mg/dL (40-60); LDL Cholesterol Calculated 161 mg/dL (<100); Triglycerides 226 mg/dL (35-150)
[2024-08-20 15:34] LABS: Free T4, Direct Thyroxine 1.27 ng/dL (0.78-2.19)
== END ==
PROVIDERS: PCP Family Medicine; Referring Provider Family Medicine; Visit Provider Family Medicine
DX: E03.9 Hypothyroidism, unspecified (principal); E78.2 Mixed hyperlipidemia; I10 Essential (primary) hypertension
CPT/HCPCS: 36415; 80061; 84439; 84443

== ENCOUNTER 2024-09-08 00:51 | Emergency (ER) | payer MEDICARE, OTHER, SELFPAY ==
[2024-01-09 08:32] VITALS: BMI 27.2
[2024-09-08 00:58] VITALS: PULSE 80; O2SAT 98
--- NOTE | 2024-09-08 00:59 | ED.ABDPAIN ---
HPI - Abdominal Pain General Chief Complaint: Abdominal Pain Stated Complaint: celulitis in back,abd pain,poss kidney stones Time Seen by Provider: 09/08/24 00:58 History of Present Illness HPI narrative: Patient is a 68-year-old male with a history of hyperlipidemia hypothyroidism hypertension kidney stones comes into the ED from home for multiple complaints. He states that he is currently being seen by the [facility] for blastocystis hominis with Flagyl and doxycycline states that he has been on this for the past several days, states that he initially had some improvement but believes that it is no longer working, states this rash/redness has been ongoing intermittent for the past several weeks, he is also complaining of right lower quadrant abdominal pain history of kidney stones, states that he has passed a kidney stone earlier today. He is not complaining of any other symptoms Related Data Home Medications Medication Instructions Recorded Confirmed tadalafil 5 mg tablet 5 mg PO DAILY 05/10/24 05/10/24 Previous Rx's Medication Instructions Recorded levothyroxine 175 mcg tablet 175 mcg PO DAILY #90 tabs 05/10/24 meloxicam 15 mg tablet 15 mg PO DAILY PRN pain #90 tabs 05/15/24 atorvastatin 20 mg tablet 20 mg PO BEDTIME #90 tabs 08/27/24 Allergies Allergy/AdvReac Type Severity Reaction Status Date / Time gold Au 198 Allergy Mild Gold Verified 08/27/24 10:32 fillings caused bleeding Review of Systems Review of Systems Narrative: General: Denies fever, chills, weight loss HEENT: Denies headache, eye drainage, eye irritation, head trauma, sore throat, voice change Cardiovascular: Denies any chest pain, palpitations, shortness of breath, tachycardia Respiratory: Denies any shortness of breath, cough, wheeze, stridor GI/: Positive abdominal pain, nausea, denies vomiting, diarrhea, bright red blood per rectum, melanotic stools, urinary frequency, urinary retention, dysuria, hematuria MSK: Denies any joint pain, muscle pains, swelling Skin: Positive rash to the posterior back Neuro: Denies any headache, lightheadedness, dizziness, fainting, weakness Psych: Denies SI/HI Patient History Medical History (Updated 09/08/24 @ 04:39 by Renzo Eduardo DO) Sigmoid diverticulosis Extrarenal pelvis BPH w urinary obs/LUTS Right nephrolithiasis (~04/2023) Cervical vertebral fusion Chronic kidney disease (CKD) Spinal stenosis of cervical region Adverse reaction to COVID-19 vaccine (01/20/21) HTN (hypertension) Hyperlipidemia, mixed Upper extremity somatic dysfunction Bilateral carpal tunnel syndrome Cervical somatic dysfunction Neck stiffness Neck pain of over 3 months duration Vaccine reaction Erosion of terminal ileum Nocturia associated with benign prostatic hyperplasia Hypothyroidism (acquired) Spondylolisthesis, cervical region Cervical radiculopathy Surgical History History of surgery H/O hernia repair Hx of tonsillectomy Family History Father Heart disease Mother Cancer Brother Cancer Other No pertinent family history Social History marital status: household members: spouse lives independently: Yes Smoking Status: Never smoker alcohol intake: former Smoking Status: Never smoker alcohol intake frequency: holidays/special occasions only Substance Use Type: does not use Exam Narrative Exam Narrative: General: Cooperative, comfortable, well-developed, not in acute distress HEENT: Normocephalic, atraumatic, PERRLA, normal sclera, eyelids normal, Neck: Active full range of motion, atraumatic Chest: Normal to inspection, negative crepitus, no overlying erythema ecchymosis Respiratory: Normal respiratory effort, not in acute respiratory distress, clear to auscultation bilaterally negative cough, wheeze, tachypnea, rhonchi, rales Cardiology: Regular rate rhythm negative gallop, murmur, rubs GI/: Normal to inspection, soft, nonrigid, no tenderness to palpation, exam deferred MSK: Full range of active range of motion of all 4 extremities, atraumatic Skin: Raised indurated erythematous rash to the posterior back, no streaking noted Neuro: Alert awake oriented x3, moves all 4 extremities spontaneously, cranial nerves intact, able to answer all questions appropriately follows commands appropriately Psych: Cooperative, negative suicidal or homicidal ideations Initial Vital Signs Initial Vital Signs: Vital Signs Temperature 97.3 F L 09/08/24 01:07 Pulse Rate 80 09/08/24 01:07 Respiratory Rate 20 09/08/24 01:07 Blood Pressure 161/87 H 09/08/24 01:07 Pulse Oximetry 99 09/08/24 01:07 Oxygen Delivery Method Room Air 09/08/24 01:07 Course Orders Ordered: ED Orders 09/08/24 01:20 Complete Blood Count AUTO DIFF Stat Comprehensive Metabolic Panel Stat Lipase Stat 09/08/24 01:40 CT chest abd pel wo con Stat Vital Signs Vital signs: Vital Signs - 8 hr 09/08/24 01:07 09/08/24 04:10 Temperature 97.3 F L 98.2 F Pulse Rate 80 80 Respiratory Rate 20 17 Blood Pressure 161/87 H 148/86 H Pulse Oximetry 99 96 Oxygen Delivery Method Room Air Room Air MDM - Abdominal Pain Differential Diagnosis Differential diagnosis: Likely other (Urolithiasis, nephrolithiasis, and urinary tract infection, pyelonephritis, cellulitis) Lab Data 09/08/24 01:20 09/08/24 01:20 Labs: Lab Results 09/08/24 Range/Units 01:20 WBC 12.2 H (4.5-11.0) X10^3/uL RBC 4.15 L (4.5-5.9) X10^6/uL Hgb 12.3 L (13.5-17.5) g/dL Hct 35.9 L (41-53) % MCV 86.4 (80-100) fL MCH 29.8 (26-34) PG MCHC 34.4 (30-36) % RDW 13.2 (11.6-14.8) % Plt Count 235 (150-400) X10^3/uL Neut % (Auto) 69.0 (50-75) % Lymph % (Auto) 10.8 L (25-40) % [place] % (Auto) 16.0 H (3-14) % Eos % (Auto) 3.7 (2-4) % Baso % (Auto) 0.5 (0-2) % Neut # (Auto) 8400 H (0414-7586) /uL Lymph # (Auto) 1300 (4836-0495) /uL [place]ower # (Auto) 1900 H (0-900) /uL Eos # (Auto) 500 H (0-450) /uL Baso # (Auto) 100 (0-100) /uL Sodium 128 L (137-145) mmol/L Potassium 3.7 (3.4-5.1) mmol/L Chloride 97 L (98-107) mmol/L Carbon Dioxide 25 (22-32) mmol/L BUN 23 H (9-20) mg/dL Creatinine 2.01 H (0.66-1.25) mg/dL Estimated GFR 35 L (>60) mL/min BUN/Creatinine Ratio 11.4 (6-22) Glucose 118 H (80-110) mg/dL Calcium 8.7 (8.4-10.2) mg/dL Total Bilirubin 0.6 (0.2-1.3) mg/dL AST 20 (17-59) IU/L ALT 14 (<50) IU/L Alkaline Phosphatase 64 (38-126) U/L Total Protein 6.8 (6.3-8.2) g/dL Albumin 3.5 (3.5-5.0) g/dL Globulin 3.3 (1.7-4.1) g/dL Albumin/Globulin Ratio 1.1 (1.0-2.8) Lipase 104 (23-300) U/L Point of care testing: Urine Dip Bedside Urine Glucose Negative Bedside Urine Bilirubin - Negative Bedside Urine Ketone - Negative Urine Specific [place] 1.000 Bedside Urine Occult Blood - Negative Bedside Urine pH 6.0 Bedside Urine Protein - Negative Bedside Urine Urobilinogen - Negative Bedside Urine Nitrite - Negative Bedside Urine Leukocytes - Negative Esterase Imaging Data CT scan - abdomen/pelvis: Radiologist's Impression: Preliminary read showing severe right hydronephrosis with abrupt tapering at the proximal ureter related to UPJ obstruction recommending evaluation with CT IVP and urological consultation. Right nephrolithiasis also noted. CT scan - chest: Radiologist's Impression: Preliminary read showing subcutaneous inflammatory changes within the back without abscess consistent with known cellulitis no drainable collection seen. MDM Narrative Medical decision making narrative: Patient is a 68-year-old male history of hyperlipidemia hypothyroidism currently undergoing treatment for cellulitis with the [facility] on Flagyl and doxy presenting for multiple complaints. States that he has been having persistent pain to his upper back after known cellulitis. He is also with a history of nephrolithiasis complaining of persistent dull pain to his right flank/right abdominal region. Patient states that he has been passing stones, states that he feels them pass whenever he urinates. Has had some urinary hesitancy. Laboratory finding does show leukocytosis of 12.2, slightly elevated creatinine from baseline currently at 2 baseline in the 1.5. 0300: Discussion with Dr. Davenport of Urology who reviewed the case stating that given patient with chronic UPJ obstruction no current intervention needed. Unlikely patient passing acute stones given urinalysis without any signs of infection or blood from a urological standpoint not requiring any other interventions at this time. 0437: Patient re-evaluated no new complaints at this time, not complaining of any new symptoms. Patient was instructed to follow up with his urologist for his chronic UPJ obstruction, I informed patient to continue his oral antibiotics for his cellulitis he was given strict return precautions he verbalized understanding of this and agrees to being discharged home with outpatient follow up. Discharge Plan Departure Patient Disposition: Home Clinical Impression: Cellulitis, Hydronephrosis Activity Restrictions/Additional Instructions: Please follow up with your [facility] doctor and your urologist Please read the discharge instructions sheet carefully and bring all papers to all doctor follow-up visits, as it may contain information that your doctor may want to see. Disease processes change and evolve, if your symptoms worsen or if you develop any new symptoms that are concerning to you please return for evaluation. Your evaluation today does not show any evidence of any life-threatening/serious illnesses requiring admission to the hospital or surgery. Please follow-up with your doctor for re-evaluation in approximately 1 day. Seek immediate medical attention for any worrisome symptoms. Prescriptions: No Action meloxicam 15 mg tablet 15 mg PO DAILY PRN (Reason: pain) Qty: 90 3RF tadalafil 5 mg tablet 5 mg PO DAILY levothyroxine 175 mcg tablet 175 mcg PO DAILY Qty: 90 3RF atorvastatin 20 mg tablet 20 mg PO BEDTIME Qty: 90 3RF Referrals: Mikey Keene DO [Primary Care Provider] - Stand Alone Forms: Patient Portal/API/Survey
[2024-09-08 01:07] VITALS: BP 161/87; PULSE 80; RESP 20; TEMP 36.3; O2SAT 99; BMI 28.7
[2024-09-08 01:33] LABS: Add Manual Diff / Slide Review NO; Basophils Absolute Auto 100 /uL (0-100); Basophils Percent Auto 0.5 % (0-2); Eosinophils Absolute Auto 500 /uL (0-450); Eosinophils Percent Auto 3.7 % (2-4); Hematocrit 35.9 % (41-53); Hemoglobin 12.3 g/dL (13.5-17.5); Lymphocytes Absolute Auto 1300 /uL (1100-4500); Lymphocytes Percent Auto 10.8 % (25-40); Mean Corpuscular HGB Conc 34.4 % (30-36); Mean Corpuscular Hemoglobin 29.8 PG (26-34); Mean Corpuscular Volume 86.4 fL (80-100); Monocytes Absolute Auto 1900 /uL (0-900); Neutrophils Absolute Auto 8400 /uL (1500-7000); Platelet Count 235 X10^3/uL (150-400); Red Blood Cell Count 4.15 X10^6/uL (4.5-5.9); Red Cell Distribution Width 13.2 % (11.6-14.8); White Blood Cell Count 12.2 X10^3/uL (4.5-11.0)
[2024-09-08 01:38] LABS: Alanine Aminotransferase 14 IU/L (<50); Albumin 3.5 g/dL (3.5-5.0); Albumin Globulin Ratio 1.1 (1.0-2.8); Alkaline Phosphatase 64 U/L (38-126); Aspartate Aminotransferase 20 IU/L (17-59); BUN Creatinine Ratio 11.4 (6-22); Bilirubin Total 0.6 mg/dL (0.2-1.3); Blood Urea Nitrogen 23 mg/dL (9-20); Calcium 8.7 mg/dL (8.4-10.2); Carbon Dioxide 25 mmol/L (22-32); Chloride 97 mmol/L (98-107); Estimated Glomerular Filt Rate 35 mL/min (>60); Globulin 3.3 g/dL (1.7-4.1); Glucose 118 mg/dL (80-110); HEMOLYSIS < 15 (0-50); Lipase 104 U/L (23-300); Potassium 3.7 mmol/L (3.4-5.1); Sodium 128 mmol/L (137-145); Total Protein 6.8 g/dL (6.3-8.2)
--- NOTE | 2024-09-08 01:40 | DI.CT.S_ITS ---
PROCEDURE: CT CHEST ABD PEL WO CON INDICATIONS: Cellulitis of the posterior back, right-sided abdominal/flan TECHNIQUE: After the administration of oral contrast, 5 mm thick sections acquired from the lung apices to the symphysis pubis. 5 mm thick coronal and sagittal reformats acquired, with additional 7 mm coronal MIP reformats through the lungs. For radiation dose reduction, the following was used: automated exposure control, adjustment of mA and/or kV according to patient size. COMPARISON: CT, CT ABDOMEN PELVIS W CON, 08/15/2022, 12:36. FINDINGS: Image quality: Diagnostic. CHEST: Lower Neck: No enlarged lymph nodes. Thyroid: No thyroid nodules which require sonographic follow up, per consensus guidelines. Axillae: No enlarged lymph nodes. Chest Wall: Unremarkable. Bones: Unremarkable. Lungs and Pleura: No pneumothorax or pleural effusions. No consolidation or suspicious nodules. Heart: Heart size is normal. Trace pericardial effusion. Atherosclerotic changes are present. Thoracic Vessels: There is mild aneurysmal dilation of the ascending thoracic aorta measuring 3.7 cm. Mediastinum and [place]: No enlarged lymph nodes. Esophagus: No wall thickening. Mild hiatal hernia. ABDOMEN: Liver: Low-attenuation hepatic foci with some too small to definitively characterize. Larger foci appear consistent with cysts. Smaller foci could statistically could represent cysts. Gallbladder: Gallstone without wall thickening. Biliary ducts: No biliary dilation. Pancreas: No ductal dilation. Spleen: Size is within normal limits. Adrenal Glands: No adrenal nodules. Kidneys and Ureters: Moderate to severe hydronephrosis with large extrarenal pelvis. Dependent calcifications are present within the collecting system. No ureteral dilation. Stomach and Bowel: Normal colonic caliber, without significant wall thickening. Colonic diverticular present. Peritoneum: No abnormal intraperitoneal fluid. No free air. Ventral Wall: No hernia. Abdominal Nodes: No retroperitoneal or mesenteric adenopathy by size criteria. Vessels: Aorta and inferior vena cava are normal in size. PELVIS: Pelvic Organs: Unremarkable. Bladder: Unremarkable. Pelvic Nodes: No enlarged lymph nodes. Miscellaneous: Bilateral fat containing inguinal hernias are seen. Mild appearance of stranding within the subcutaneous of the mid back without focal fluid. Bones: No aggressive osseous abnormality. IMPRESSION: Mild stranding within the subcutaneous fat of the mid back without focal fluid collection. This may represent inflammatory change such as cellulitis. Direct visualization is recommended. Severe right hydronephrosis with layering stones most suggestive UPJ obstruction. The above findings are concordant with preliminary report. Dictated by: Janneth Castañeda M.D. on 09/08/2024 at 8:39 Approved by: Janneth Castañeda M.D. on 09/08/2024 at 8:46
[2024-09-08 04:08] VITALS: O2SAT 97
[2024-09-08 04:09] VITALS: BP 148/86; PULSE 82; RESP 18; O2SAT 97
[2024-09-08 04:10] VITALS: BP 148/86; PULSE 80; RESP 17; TEMP 36.8; O2SAT 96
== END 2024-09-08 05:07 | disposition home or self-care (01) ==
PROVIDERS: Emergency Provider Student in an Organized Health Care Education/Training Program; PCP Family Medicine
DX: L03.312 Cellulitis of back [any part except buttock and flank] (principal); N13.30 Unspecified hydronephrosis; Z87.442 Personal history of urinary calculi
CPT/HCPCS: 36415; 71250; 74176; 80053; 81003; 83690; 85025; 99284

== ENCOUNTER → 2024-12-09 13:41 | Outpatient (CLI) | payer MEDICARE, OTHER, SELFPAY ==
[2024-01-09 08:32] VITALS: BMI 27.2
[2024-12-09 15:05] LABS: Cholesterol 178 mg/dL (140-199); HDL Cholesterol 47 mg/dL (40-60); LDL Cholesterol Calculated 102 mg/dL (<100); Triglycerides 143 mg/dL (35-150)
== END ==
PROVIDERS: PCP Family Medicine; Referring Provider Family Medicine; Visit Provider Family Medicine
DX: E78.2 Mixed hyperlipidemia (principal)
CPT/HCPCS: 36415; 80061

== ENCOUNTER 2025-03-23 02:59 | Emergency (ER) | payer MEDICARE, OTHER, SELFPAY ==
[2024-01-09 08:32] VITALS: BMI 27.2
[2025-03-23] VITALS (10 sets, daily range): BP systolic 166–201; BP diastolic 100–113; PULSE 60–71; RESP 16–18; TEMP 36.5; O2SAT 97–99; BMI 28.7
--- NOTE | 2025-03-23 03:53 | DI.CT.S_ITS ---
PROCEDURE: CT FACIAL BONES W CON INDICATIONS: recurrent sinusitis TECHNIQUE: After the administration of intravenous contrast, 2.5 mm axial sections acquired from the mid-neck to the frontal sinuses, with coronal and sagittal reformats. For radiation dose reduction, the following was used: automated exposure control, adjustment of mA and/or kV according to patient size. COMPARISON: None. FINDINGS: Image quality: Excellent. Soft tissues: No edema, masses, or fluid collections. No enlarged lymph nodes. Vascular: Visualized vascular structures appear patent throughout. Bony vascular foramina and canals appear normal. Fenestrated appearance of the basilar artery, a normal anatomical variant. Bones: Facial bones appear intact, without fractures, erosions, or destruction. Visualized portions of the skull base and auditory canals also appear normal. Sinuses: Mild mucosal thickening is seen in the maxillary sinuses bilaterally. Trace air-fluid level in the right maxillary sinus. Mild mucosal thickening in the anterior ethmoid air cells. The remaining paranasal sinuses and the mastoid air cells are clear. IMPRESSION: Mild mucosal thickening in the bilateral maxillary sinuses and anterior ethmoid air cells. Trace air-fluid level in the right maxillary sinus may indicate acute sinusitis. There is no significant discrepancy when compared to the overnight preliminary report. Approved by: Tru Howe M.D. on 03/23/2025 at 8:38
--- NOTE | 2025-03-23 03:54 | ED.URI ---
HPI - URI/Sore Throat General Chief Complaint: Upper Respiratory Symptoms Stated Complaint: Sinus/ear infection [id number].Treatments not helping Time Seen by Provider: 03/23/25 03:43 Source: patient and family Mode of arrival: Ambulatory History of Present Illness HPI Narrative: 69-year-old gentleman her hypertension hypothyroidism dyslipidemia kidney stones seen recently twice at other outlying facilities for recurrent sinusitis initially given Augmentin, ciprodex, and then on the 2nd visit placed on a Medrol Dosepak presents today with continued sinus congestion, headache, left ear pain leading to muffled hearing loss. Denies sore throat, cough, nausea, vomiting, diarrhea, chest pain abdominal pain. Other than what is stated 14 point review of system is negative. Related Data Home Medications Medication Instructions Recorded Confirmed tadalafil 5 mg tablet 5 mg PO DAILY 05/10/24 03/23/25 Previous Rx's Medication Instructions Recorded levothyroxine 175 mcg tablet 175 mcg PO DAILY #90 tabs 05/10/24 meloxicam 15 mg tablet 15 mg PO DAILY PRN pain #90 tabs 05/15/24 atorvastatin 20 mg tablet 20 mg PO BEDTIME #90 tabs 08/27/24 epinephrine 0.3mg auto- injector #1 ea 11/28/24 doxycycline hyclate 100 mg capsule 100 mg PO BID #10 caps 03/23/25 Allergies Allergy/AdvReac Type Severity Reaction Status Date / Time gold Au 198 Allergy Mild Gold Verified 03/23/25 05:33 fillings caused bleeding Review of Systems Review of Systems ROS Unobtainable: All systems reviewed & are unremarkable except as noted in HPI and below Patient History Medical History (Updated 03/23/25 @ 05:34 by Jose Granda, DO) Bilateral lower extremity edema Sigmoid diverticulosis Extrarenal pelvis BPH w urinary obs/LUTS Right nephrolithiasis (~04/2023) Cervical vertebral fusion Chronic kidney disease (CKD) Spinal stenosis of cervical region Adverse reaction to COVID-19 vaccine (01/20/21) HTN (hypertension) Hyperlipidemia, mixed Upper extremity somatic dysfunction Bilateral carpal tunnel syndrome Cervical somatic dysfunction Neck stiffness Neck pain of over 3 months duration Vaccine reaction Erosion of terminal ileum Nocturia associated with benign prostatic hyperplasia Hypothyroidism (acquired) Spondylolisthesis, cervical region Cervical radiculopathy Surgical History History of surgery H/O hernia repair Hx of tonsillectomy Family History Father Heart disease Mother Cancer Brother Cancer Other No pertinent family history Social History marital status: household members: spouse lives independently: Yes alcohol intake: former Smoking Status: Never smoker alcohol intake frequency: holidays/special occasions only Exam Narrative Exam Narrative: GENERAL: [69] year old patient appears stated age. Well-developed patient, in mild distress. HEAD: Atraumatic. Normocephalic. EYES: Pupils equal round and reactive. Extraocular motions intact. No scleral icterus. No injection or drainage. ENT: Nose without bleeding, purulent drainage. Throat without erythema, tonsillar hypertrophy or exudate. Airway patent. NECK: Trachea midline. Non tender CARDIOVASCULAR: Regular rate and rhythm without murmurs, gallops, or rubs. RESPIRATORY: Clear to auscultation. Breath sounds equal bilaterally. No wheezes, rales, or rhonchi. GASTROINTESTINAL: Abdomen soft, non-tender, nondistended. EXTREMITIES: No edema or joint tenderness. BACK: Nontender without deformity or crepitance. No flank tenderness. NEURO: AOx3. SKIN: No rash or erythema of visible areas Initial Vital Signs Initial Vital Signs: Vital Signs Temperature 97.7 F 03/23/25 03:21 Pulse Rate 70 03/23/25 03:21 Respiratory Rate 16 03/23/25 03:21 Blood Pressure 201/113 H 03/23/25 03:21 Pulse Oximetry 99 03/23/25 03:21 Oxygen Delivery Method Room Air 03/23/25 03:21 Course Orders Ordered: ED Orders 03/23/25 03:53 CT facial bones w con Stat 03/23/25 04:15 CBC Auto Diff [Complete Blood Count AUTO DIFF] Stat CMP [Comprehensive Metabolic Panel] Stat Covid-19 + FLU A/B + RSV - PCR Stat Discontinued Medications Ceftriaxone Sodium 1,000 mg/ (Sodium Chloride) 100 mls @ 200 mls/hr IV NOW ONE Stop: 03/23/25 03:54 Last Infusion: 03/23/25 04:56 Dose: Infused Methylprednisolone (Methylprednisolone 125 Mg/2 Ml Vial) 125 mg IV NOW ONE Stop: 03/23/25 03:54 Last Admin: 03/23/25 04:04 Dose: 125 mg Vital Signs Vital signs: Vital Signs - 8 hr 03/23/25 03:21 03/23/25 03:28 03/23/25 03:30 Temperature 97.7 F Pulse Rate 70 64 Respiratory Rate 16 Blood Pressure 201/113 H 166/108 H Pulse Oximetry 99 98 Oxygen Delivery Method Room Air 03/23/25 03:30 03/23/25 04:00 03/23/25 04:00 Temperature Pulse Rate 64 62 Respiratory Rate Blood Pressure 173/100 H Pulse Oximetry 97 98 Oxygen Delivery Method 03/23/25 04:26 03/23/25 04:26 03/23/25 04:30 Temperature Pulse Rate 66 60 Respiratory Rate Blood Pressure 196/102 H Pulse Oximetry 99 97 Oxygen Delivery Method 03/23/25 04:31 03/23/25 04:31 03/23/25 05:00 Temperature Pulse Rate 62 71 Respiratory Rate Blood Pressure 186/103 H Pulse Oximetry 98 98 Oxygen Delivery Method 03/23/25 05:02 03/23/25 05:02 Temperature Pulse Rate 64 Respiratory Rate Blood Pressure 199/102 H Pulse Oximetry 97 Oxygen Delivery Method MDM - URI/Sore Throat Lab Data 03/23/25 04:15 03/23/25 04:15 Labs: Lab Results 03/23/25 Range/Units 04:15 WBC 9.5 (4.5-11.0) X10^3/uL RBC 4.58 (4.5-5.9) X10^6/uL Hgb 13.7 (13.5-17.5) g/dL Hct 40.3 L (41-53) % MCV 88.0 (80-100) fL MCH 29.8 (26-34) PG MCHC 33.9 (30-36) % RDW 13.5 (11.6-14.8) % Plt Count 214 (150-400) X10^3/uL Neut % (Auto) 78.8 H (50-75) % Lymph % (Auto) 11.5 L (25-40) % [place] % (Auto) 9.1 (3-14) % Eos % (Auto) 0.3 L (2-4) % Baso % (Auto) 0.3 (0-2) % Neut # (Auto) 7500 H (2784-4261) /uL Lymph # (Auto) 1100 (0993-9285) /uL [place] # (Auto) 900 (0-900) /uL Eos # (Auto) 0 (0-450) /uL Baso # (Auto) 0 (0-100) /uL Sodium 138 (137-145) mmol/L Potassium 4.8 (3.4-5.1) mmol/L Chloride 106 (98-107) mmol/L Carbon Dioxide 21 L (22-32) mmol/L BUN 33 H (9-20) mg/dL Creatinine 1.49 H (0.66-1.25) mg/dL Estimated GFR 50 L (>60) mL/min BUN/Creatinine Ratio 22.1 H (6-22) Glucose 117 H (70-99) mg/dL Calcium 9.2 (8.4-10.2) mg/dL Total Bilirubin 0.5 (0.2-1.3) mg/dL AST 27 (17-59) IU/L ALT 21 (<50) IU/L Alkaline Phosphatase 77 (38-126) U/L Total Protein 7.7 (6.3-8.2) g/dL Albumin 4.5 (3.5-5.0) g/dL Globulin 3.2 (1.7-4.1) g/dL Albumin/Globulin Ratio 1.4 (1.0-2.8) SARS-CoV-2 (PCR) Negative (Negative) Influenza A (RT-PCR) Flu a negative (NEGATIVE) Influenza B (RT-PCR) Flu b negative (NEGATIVE) RSV (PCR) Negative (Negative) MDM Narrative Medical decision making narrative: Vital signs, nurse triage note, medication list, and all lab work and imaging studies reviewed. CT scan showed bilateral maxillary and ethmoid sinus disease. Patient given Rocephin 1 g IV and Solu-Medrol 125 mg IV here. Differential diagnosis include acute bacterial sinusitis, viral syndrome, COVID, flu, RSV, strep throat. DC home on doxycycline antibiotic. Patient has upcoming appointment with PCP on Monday for follow up. Discharge Plan Departure Patient Disposition: Home Clinical Impression: Acute bacterial sinusitis Instructions: DI for Sinusitis Activity Restrictions/Additional Instructions: Return with new or worsening symptoms. Take your medicine directed. Follow up with PCP at your upcoming appointment. Prescriptions: New doxycycline hyclate 100 mg capsule 100 mg PO BID Qty: 10 0RF No Action meloxicam 15 mg tablet 15 mg PO DAILY PRN (Reason: pain) Qty: 90 3RF (DME) epinephrine 0.3mg auto- injector See Rx Instructions .Route .MEDSUPPLY Qty: 1 3RF Rx Instructions: As directed tadalafil 5 mg tablet 5 mg PO DAILY levothyroxine 175 mcg tablet 175 mcg PO DAILY Qty: 90 3RF atorvastatin 20 mg tablet 20 mg PO BEDTIME Qty: 90 3RF Referrals: Mikey Keene DO [Primary Care Provider] - Stand Alone Forms: Patient Portal/API/Survey
[2025-03-23] MEDS: cefTRIAXone 1,000 MG in SODIUM CHLORIDE 0.9% 100 ML 200 MG IV (04:04)
[2025-03-23] MEDS: methylPREDNISolone 125 MG/2 ML VIAL IV (04:04)
[2025-03-23 04:29] LABS: Add Manual Diff / Slide Review NO; Basophils Absolute Auto 0 /uL (0-100); Basophils Percent Auto 0.3 % (0-2); Eosinophils Absolute Auto 0 /uL (0-450); Eosinophils Percent Auto 0.3 % (2-4); Hematocrit 40.3 % (41-53); Hemoglobin 13.7 g/dL (13.5-17.5); Lymphocytes Absolute Auto 1100 /uL (1100-4500); Lymphocytes Percent Auto 11.5 % (25-40); Mean Corpuscular HGB Conc 33.9 % (30-36); Mean Corpuscular Hemoglobin 29.8 PG (26-34); Monocytes Absolute Auto 900 /uL (0-900); Monocytes Percent Auto 9.1 % (3-14); Neutrophils Absolute Auto 7500 /uL (1500-7000); Neutrophils Percent Auto 78.8 % (50-75); Platelet Count 214 X10^3/uL (150-400); Red Blood Cell Count 4.58 X10^6/uL (4.5-5.9); Red Cell Distribution Width 13.5 % (11.6-14.8); White Blood Cell Count 9.5 X10^3/uL (4.5-11.0)
[2025-03-23 04:37] LABS: Alanine Aminotransferase 21 IU/L (<50); Albumin 4.5 g/dL (3.5-5.0); Albumin Globulin Ratio 1.4 (1.0-2.8); Alkaline Phosphatase 77 U/L (38-126); Aspartate Aminotransferase 27 IU/L (17-59); BUN Creatinine Ratio 22.1 (6-22); Bilirubin Total 0.5 mg/dL (0.2-1.3); Blood Urea Nitrogen 33 mg/dL (9-20); Calcium 9.2 mg/dL (8.4-10.2); Carbon Dioxide 21 mmol/L (22-32); Chloride 106 mmol/L (98-107); Estimated Glomerular Filt Rate 50 mL/min (>60); Globulin 3.2 g/dL (1.7-4.1); Glucose 117 mg/dL (70-99); HEMOLYSIS < 15 (0-50); Potassium 4.8 mmol/L (3.4-5.1); Sodium 138 mmol/L (137-145); Total Protein 7.7 g/dL (6.3-8.2)
[2025-03-23 05:01] LABS: Influenza A - CEPHEID Flu A NEGATIVE (NEGATIVE); Influenza B - CEPHEID Flu B NEGATIVE (NEGATIVE); Respiratory Syncytial Virus Negative (Negative)
[2025-03-23 05:05] LABS: COVID-19 CEPHEID 4-PLEX PCR Negative (Negative)
--- NOTE | 2025-03-23 05:28 | PC.NURSE ---
Pt persistently hypertensive on the monitor. States he has not taken his BP medication in a few days since he was feeling unwell. aware.
== END 2025-03-23 05:48 | disposition home or self-care (01) ==
PROVIDERS: Emergency Provider Family Medicine; PCP Family Medicine
DX: J01.90 Acute sinusitis, unspecified (principal); H92.02 Otalgia, left ear; R51.9 Headache, unspecified
CPT/HCPCS: 0241U; 36415; 70487; 80053; 85025; 96365; 96375; 99284; J0696; J2919; Q9967

== ENCOUNTER 2025-03-25 11:37 | Emergency (ER) | payer MEDICARE, OTHER, SELFPAY ==
[2024-01-09 08:32] VITALS: BMI 27.2
[2025-03-25 11:42] VITALS: BP 175/99; PULSE 65; RESP 18; TEMP 36.4; O2SAT 99; BMI 28.7
--- NOTE | 2025-03-25 11:59 | ED_ITS ---
HPI - URI/Sore Throat <Lakisha Dobbs PA-C - Last Filed: 03/25/25 19:32> General Chief Complaint: Upper Respiratory Symptoms Stated Complaint: sinus infection Time Seen by Provider: 03/25/25 11:51 Source: patient Mode of arrival: Ambulatory History of Present Illness HPI Narrative: 69-year-old male returns to the ED with worsening nasal congestion and facial pain. Patient has been seen in the ED 2 days ago for sinusitis, was prescribed doxycycline after initially failing treatment with Augmentin. Patient states that he has been taking the doxycycline for 2 days but notes worsening congestion. Patient localizes his symptoms to his left side reporting his left sinuses and left ear feel clogged and congested, along with pain. No fever, chills, chest pain, shortness of breath, nausea, vomiting, headache. Patient does note that when his sinusitis symptoms started about 3-4 weeks ago, he used an old nasal spray from his fishing tackle box, which turned out to have some mold in it. Patient also since then has been using Otrivin daily for the nasal congestion. Patient is not aware that the Otrivin over an extended period of time greater than 3 days can cause rebound symptoms. Patient is not immunocompromised and does not have any cancer, diabetes etc. Related Data Home Medications Medication Instructions Recorded Confirmed tadalafil 5 mg tablet 5 mg PO DAILY 05/10/24 03/23/25 Previous Rx's Medication Instructions Recorded levothyroxine 175 mcg tablet 175 mcg PO DAILY #90 tabs 05/10/24 meloxicam 15 mg tablet 15 mg PO DAILY PRN pain #90 tabs 05/15/24 atorvastatin 20 mg tablet 20 mg PO BEDTIME #90 tabs 08/27/24 epinephrine 0.3mg auto- injector #1 ea 11/28/24 doxycycline hyclate 100 mg capsule 100 mg PO BID #10 caps 03/23/25 Allergies Allergy/AdvReac Type Severity Reaction Status Date / Time gold Au 198 Allergy Mild Gold Verified 03/23/25 05:33 fillings caused bleeding Review of Systems <Lakisha Dobbs PA-C - Last Filed: 03/25/25 19:32> Constitutional Constitutional: Denies chills, Denies fatigue, Denies fever(s), Denies frequent falls, Denies lethargy and Denies weakness Eyes Eyes: Denies change in vision, Denies eye discharge, Denies irritation and Denies loss of vision ENT Ears, Nose, Mouth, and Throat: Denies change in voice, Denies dizziness, Reports facial pain, Reports nasal congestion, Denies neck pain, Denies sore throat and Denies throat swelling Cardiovascular Cardiovascular: Denies chest pain, Denies irregular heart rhythm, Denies lightheadedness, Denies palpitations, Denies dyspnea, Denies dyspnea on exertion and Denies orthopnea Respiratory Respiratory: Denies cough, Denies dyspnea, Denies dyspnea on exertion and Denies wheezing Gastrointestinal Gastrointestinal: Denies abdominal pain, Denies change in bowel habits, Denies diarrhea, Denies nausea and Denies vomiting Musculoskeletal Musculoskeletal: Denies neck pain and Denies numbness Integumentary/Breasts Skin/Breast: Denies pruritus, Denies erythema, Denies rash and Denies wounds Neurologic Neurologic: Denies behavioral changes, Denies confusion, Denies dizziness, Denies frequent falls, Denies loss of vision, Denies numbness and Denies weakness Psychiatric Psychiatric: Denies anxiety, Denies behavioral changes, Denies confusion, Denies depression, Denies homicidal ideation and Denies suicidal ideation Endocrine Endocrine: Denies fatigue, Denies flushing and Denies palpitations Hematologic/Lymphatic Hematologic/Lymphatic: Denies easy bruising Allergic/Immunologic Allergic/Immunologic: Denies urticaria, Denies throat swelling and Denies wheezing Patient History <Lakisha Dobbs PA-C - Last Filed: 03/25/25 19:32> Medical History Bilateral lower extremity edema Sigmoid diverticulosis Extrarenal pelvis BPH w urinary obs/LUTS Right nephrolithiasis (~04/2023) Cervical vertebral fusion Chronic kidney disease (CKD) Spinal stenosis of cervical region Adverse reaction to COVID-19 vaccine (01/20/21) HTN (hypertension) Hyperlipidemia, mixed Upper extremity somatic dysfunction Bilateral carpal tunnel syndrome Cervical somatic dysfunction Neck stiffness Neck pain of over 3 months duration Vaccine reaction Erosion of terminal ileum Nocturia associated with benign prostatic hyperplasia Hypothyroidism (acquired) Spondylolisthesis, cervical region Cervical radiculopathy Surgical History History of surgery H/O hernia repair Hx of tonsillectomy Family History Father Heart disease Mother Cancer Brother Cancer Other No pertinent family history Social History marital status: household members: spouse lives independently: Yes Smoking Status: Never smoker alcohol intake: former Smoking Status: Never smoker alcohol intake frequency: holidays/special occasions only Exam <Lakisha Dobbs PA-C - Last Filed: 03/25/25 19:32> Narrative Exam Narrative: Const General:?cooperative, healthy appearing and comfortable [facility] Head:?normal to inspection Ears:?hearing grossly normal bilaterally; left tympanum is normal; right tympanum is not visualized due to cerumen impaction Nose:?external nose normal Face and sinus:?normal facial exam and sinuses nontender Mouth:?oral mucosae normal Throat:?posterior oropharynx normal Eyes General:?appearance normal, both eyes and all related structures Neck Neck:?normal visual inspection and no lymphadenopathy noted Resp Effort & Inspection:?normal respiratory effort Auscultation:?clear to auscultation bilaterally Cardio Rate:?regular rate Rhythm:?regular rhythm Neuro General:?patient alert, patient awake and patient oriented x3 Initial Vital Signs Initial Vital Signs: Vital Signs Temperature 97.6 F 03/25/25 11:42 Pulse Rate 65 03/25/25 11:42 Respiratory Rate 18 03/25/25 11:42 Blood Pressure 175/99 H 03/25/25 11:42 Pulse Oximetry 99 03/25/25 11:42 Oxygen Delivery Method Room Air 03/25/25 11:42 <Saskia Gutpa MD - Last Filed: 03/27/25 20:01> Initial Vital Signs Initial Vital Signs: Vital Signs Temperature 97.6 F 03/25/25 11:42 Pulse Rate 65 03/25/25 11:42 Respiratory Rate 18 03/25/25 11:42 Blood Pressure 175/99 H 03/25/25 11:42 Pulse Oximetry 99 03/25/25 11:42 Oxygen Delivery Method Room Air 03/25/25 11:42 Course <Lakisha Dobbs PA-C - Last Filed: 03/25/25 19:32> Orders Ordered: Discontinued Medications Fluticasone Propionate (Fluticasone 120 [place]/16 Gm [place].Susp) 2 spray NASAL NOW ONE Stop: 03/25/25 13:08 Last Admin: 03/25/25 13:29 Dose: 2 spray Documented By: IRVING Ketorolac Tromethamine (Ketorolac 30 Mg/Ml Vial) 30 mg IV NOW ONE Stop: 03/25/25 13:08 Last Admin: 03/25/25 13:28 Dose: 30 mg Documented By: IRVING Vital Signs Vital signs: Vital Signs - 8 hr 03/25/25 11:42 03/25/25 15:01 03/25/25 15:05 Temperature 97.6 F Pulse Rate 65 69 69 Respiratory Rate 18 18 18 Blood Pressure 175/99 H 146/83 H 146/83 H Pulse Oximetry 99 99 99 Oxygen Delivery Method Room Air Room Air Room Air <Saskia Gupta MD - Last Filed: 03/27/25 20:01> Orders Ordered: Discontinued Medications Fluticasone Propionate (Fluticasone 120 [place]/16 Gm [place].Susp) 2 spray NASAL NOW ONE Stop: 03/25/25 13:08 Last Admin: 03/25/25 13:29 Dose: 2 spray Documented By: IRVING Ketorolac Tromethamine (Ketorolac 30 Mg/Ml Vial) 30 mg IV NOW ONE Stop: 03/25/25 13:08 Last Admin: 03/25/25 13:28 Dose: 30 mg Documented By: IRVING Vital Signs Vital signs: Vital Signs - 8 hr 03/25/25 11:42 03/25/25 15:01 03/25/25 15:05 Temperature 97.6 F Pulse Rate 65 69 69 Respiratory Rate 18 18 18 Blood Pressure 175/99 H 146/83 H 146/83 H Pulse Oximetry 99 99 99 Oxygen Delivery Method Room Air Room Air Room Air MDM - URI/Sore Throat <Lakisha Dobbs PA-C - Last Filed: 03/25/25 19:32> Lab Data 03/25/25 13:15 03/25/25 13:15 Labs: Lab Results 03/25/25 Range/Units 13:15 WBC 8.1 (4.5-11.0) X10^3/uL RBC 4.72 (4.5-5.9) X10^6/uL Hgb 14.3 (13.5-17.5) g/dL Hct 41.3 (41-53) % MCV 87.6 (80-100) fL MCH 30.3 (26-34) PG MCHC 34.6 (30-36) % RDW 13.5 (11.6-14.8) % Plt Count 213 (150-400) X10^3/uL Neut % (Auto) 58.5 (50-75) % Lymph % (Auto) 28.2 (25-40) % [place] % (Auto) 11.1 (3-14) % Eos % (Auto) 1.8 L (2-4) % Baso % (Auto) 0.4 (0-2) % Neut # (Auto) 4700 (5687-7917) /uL Lymph # (Auto) 2300 (7680-5697) /uL [place] # (Auto) 900 (0-900) /uL Eos # (Auto) 100 (0-450) /uL Baso # (Auto) 0 (0-100) /uL PT 10.3 (9.4-12.5) SECONDS INR 0.9 (0.9-1.3) APTT 35 (25.1-36.5) SECONDS Sodium 138 (137-145) mmol/L Potassium 3.8 (3.4-5.1) mmol/L Chloride 105 (98-107) mmol/L Carbon Dioxide 25 (22-32) mmol/L BUN 30 H (9-20) mg/dL Creatinine 1.45 H (0.66-1.25) mg/dL Estimated GFR 52 L (>60) mL/min BUN/Creatinine Ratio 20.7 (6-22) Glucose 94 (70-99) mg/dL Calcium 8.8 (8.4-10.2) mg/dL Total Bilirubin 0.4 (0.2-1.3) mg/dL AST 25 (17-59) IU/L ALT 24 (<50) IU/L Alkaline Phosphatase 73 (38-126) U/L Total Protein 7.4 (6.3-8.2) g/dL Albumin 4.3 (3.5-5.0) g/dL Globulin 3.1 (1.7-4.1) g/dL Albumin/Globulin Ratio 1.4 (1.0-2.8) MDM Narrative Medical decision making narrative: 69-year-old male returns to the ED with worsening nasal congestion and facial pain. Dr. Higgins from ENT was consulted regarding rebound nasal congestion versus possible fungal sinusitis. Given patient's symptoms and CT scan from 2 days ago, Dr. Higgins recommend patient stop antibiotics since the CT does not indicate bacterial sinusitis. He is in agreement that patient's symptoms are consistent with rebound from overuse of the Otrivin. You would like him to wean off of that medicine, start Flonase. He recommends that patient consult with Neurology if he has continued pain. Labs were obtained which were within normal limits. Discussed findings and plan with patient. Patient is amenable to the plan. ED return precautions were discussed with patient. Patient verbalized understanding. Medical records reviewed: Yes <Saskia Gupta MD - Last Filed: 03/27/25 20:01> Lab Data Labs: Lab Results 03/25/25 Range/Units 13:15 WBC 8.1 (4.5-11.0) X10^3/uL RBC 4.72 (4.5-5.9) X10^6/uL Hgb 14.3 (13.5-17.5) g/dL Hct 41.3 (41-53) % MCV 87.6 (80-100) fL MCH 30.3 (26-34) PG MCHC 34.6 (30-36) % RDW 13.5 (11.6-14.8) % Plt Count 213 (150-400) X10^3/uL Neut % (Auto) 58.5 (50-75) % Lymph % (Auto) 28.2 (25-40) % [place] % (Auto) 11.1 (3-14) % Eos % (Auto) 1.8 L (2-4) % Baso % (Auto) 0.4 (0-2) % Neut # (Auto) 4700 (3721-6842) /uL Lymph # (Auto) 2300 (0422-8041) /uL [place] # (Auto) 900 (0-900) /uL Eos # (Auto) 100 (0-450) /uL Baso # (Auto) 0 (0-100) /uL PT 10.3 (9.4-12.5) SECONDS INR 0.9 (0.9-1.3) APTT 35 (25.1-36.5) SECONDS Sodium 138 (137-145) mmol/L Potassium 3.8 (3.4-5.1) mmol/L Chloride 105 (98-107) mmol/L Carbon Dioxide 25 (22-32) mmol/L BUN 30 H (9-20) mg/dL Creatinine 1.45 H (0.66-1.25) mg/dL Estimated GFR 52 L (>60) mL/min BUN/Creatinine Ratio 20.7 (6-22) Glucose 94 (70-99) mg/dL Calcium 8.8 (8.4-10.2) mg/dL Total Bilirubin 0.4 (0.2-1.3) mg/dL AST 25 (17-59) IU/L ALT 24 (<50) IU/L Alkaline Phosphatase 73 (38-126) U/L Total Protein 7.4 (6.3-8.2) g/dL Albumin 4.3 (3.5-5.0) g/dL Globulin 3.1 (1.7-4.1) g/dL Albumin/Globulin Ratio 1.4 (1.0-2.8) Discharge Plan Departure Patient Disposition: Home Clinical Impression: Nasal congestion Instructions: DI for Nasal Congestion, Fluticasone Nasal [place] Activity Restrictions/Additional Instructions: You were evaluated in the ED today for nasal congestion and facial pain that has not improved with antibiotics. It appears that the continued use of medications such as Afrin or Otrivin and others in the same family for prolonged periods of time is contributing to a rebound and worsening nasal congestion. ENT Dr. Higgins was consulted, who advises stopping antibiotics since your CT is not indicative of a bacterial sinus infection. He recommends weaning off of the Otrivin, by only using a diluted version every 3 days. He recommends that you start Flonase daily. You were given 2 sprays of Flonase in each nostril today. Please continue to do 2 sprays of Flonase in each nostril once daily until your symptoms improve. Once the symptoms have improved, you may continue with 1 spray of Flonase in each nostril once daily. Your labs do not show any evidence of infection. Please follow-up with your PCP as soon as possible. If you continue to have pain symptoms, please take Tylenol for pain control and follow- up with neurology. Return to the ED if you have worsening symptoms, trouble breathing. Prescriptions: No Action meloxicam 15 mg tablet 15 mg PO DAILY PRN (Reason: pain) Qty: 90 3RF (DME) epinephrine 0.3mg auto- injector See Rx Instructions .Route .MEDSUPPLY Qty: 1 3RF Rx Instructions: As directed tadalafil 5 mg tablet 5 mg PO DAILY levothyroxine 175 mcg tablet 175 mcg PO DAILY Qty: 90 3RF atorvastatin 20 mg tablet 20 mg PO BEDTIME Qty: 90 3RF doxycycline hyclate 100 mg capsule 100 mg PO BID Qty: 10 0RF Referrals: Mikey Keene DO [Primary Care Provider] - Stand Alone Forms: Patient Portal/API/Survey ED Sign-out <Saskia Gupta MD - Last Filed: 03/27/25 20:01> Cosign ED Attending [place] Attestation: I was immediately available in the department for consultation throughout this patient's visit. Saskia Gupta MD
--- NOTE | 2025-03-25 12:08 | PC.NURSE ---
left sided facial pain; reports weeks of yellow and green mucus. Pt reports being on antibiotics and steroids and nasal sprays with no help. pr reports left sided ear pain as well.
[2025-03-25] MEDS: KETOROLAC 30 MG/ML VIAL IV (13:28)
[2025-03-25] MEDS: FLUTICASONE 120 SPRAY/16 GM SPRAY.SUSP NASAL (13:29)
[2025-03-25 13:34] LABS: Add Manual Diff / Slide Review NO; Basophils Absolute Auto 0 /uL (0-100); Basophils Percent Auto 0.4 % (0-2); Eosinophils Absolute Auto 100 /uL (0-450); Eosinophils Percent Auto 1.8 % (2-4); Hematocrit 41.3 % (41-53); Hemoglobin 14.3 g/dL (13.5-17.5); Lymphocytes Absolute Auto 2300 /uL (1100-4500); Lymphocytes Percent Auto 28.2 % (25-40); Mean Corpuscular HGB Conc 34.6 % (30-36); Mean Corpuscular Hemoglobin 30.3 PG (26-34); Mean Corpuscular Volume 87.6 fL (80-100); Monocytes Absolute Auto 900 /uL (0-900); Monocytes Percent Auto 11.1 % (3-14); Neutrophils Absolute Auto 4700 /uL (1500-7000); Neutrophils Percent Auto 58.5 % (50-75); Platelet Count 213 X10^3/uL (150-400); Red Blood Cell Count 4.72 X10^6/uL (4.5-5.9); Red Cell Distribution Width 13.5 % (11.6-14.8); White Blood Cell Count 8.1 X10^3/uL (4.5-11.0)
[2025-03-25 13:43] LABS: INR 0.9 (0.9-1.3); Prothrombin Time 10.3 SECONDS (9.4-12.5)
[2025-03-25 13:46] LABS: PTT Partial Thromboplastin Tim 35 SECONDS (25.1-36.5)
[2025-03-25 13:47] LABS: Alanine Aminotransferase 24 IU/L (<50); Albumin 4.3 g/dL (3.5-5.0); Albumin Globulin Ratio 1.4 (1.0-2.8); Alkaline Phosphatase 73 U/L (38-126); Aspartate Aminotransferase 25 IU/L (17-59); BUN Creatinine Ratio 20.7 (6-22); Bilirubin Total 0.4 mg/dL (0.2-1.3); Blood Urea Nitrogen 30 mg/dL (9-20); Calcium 8.8 mg/dL (8.4-10.2); Carbon Dioxide 25 mmol/L (22-32); Chloride 105 mmol/L (98-107); Estimated Glomerular Filt Rate 52 mL/min (>60); Globulin 3.1 g/dL (1.7-4.1); Glucose 94 mg/dL (70-99); HEMOLYSIS < 15 (0-50); Potassium 3.8 mmol/L (3.4-5.1); Sodium 138 mmol/L (137-145); Total Protein 7.4 g/dL (6.3-8.2)
[2025-03-25 15:01] VITALS: BP 146/83; PULSE 69; RESP 18; O2SAT 99
[2025-03-25 15:05] VITALS: BP 146/83; PULSE 69; RESP 18; O2SAT 99
== END 2025-03-25 15:16 | disposition home or self-care (01) ==
PROVIDERS: Emergency Provider Student in an Organized Health Care Education/Training Program; PCP Family Medicine
DX: R09.81 Nasal congestion (principal); R51.9 Headache, unspecified
CPT/HCPCS: 36415; 80053; 85025; 85610; 85730; 87040; 96374; 99284; J1885

== ENCOUNTER → 2025-09-05 12:10 | Outpatient (CLI) | payer MEDICARE, OTHER, SELFPAY ==
[2024-01-09 08:32] VITALS: BMI 27.2
[2025-09-05 13:53] LABS: Alanine Aminotransferase 29 IU/L (<50); Albumin 4.7 g/dL (3.5-5.0); Albumin Globulin Ratio 1.6 (1.0-2.8); Alkaline Phosphatase 87 U/L (38-126); Blood Urea Nitrogen 20 mg/dL (9-20); Calcium 9.2 mg/dL (8.4-10.2); Carbon Dioxide 25 mmol/L (22-32); Chloride 101 mmol/L (98-107); Cholesterol 229 mg/dL (140-199); Estimated Glomerular Filt Rate 51 mL/min (>60); Globulin 2.9 g/dL (1.7-4.1); Glucose 84 mg/dL (70-99); HDL Cholesterol 57 mg/dL (40-60); HEMOLYSIS < 15 (0-50); Potassium 4.5 mmol/L (3.4-5.1); Sodium 136 mmol/L (137-145); Total Protein 7.6 g/dL (6.3-8.2); Triglycerides 164 mg/dL (35-150)
== END ==
LOC: LAB 12:12
PROVIDERS: PCP Family Medicine; Referring Provider Family Medicine; Visit Provider Family Medicine
DX: E78.2 Mixed hyperlipidemia (principal); I12.9 Hypertensive chronic kidney disease with stage 1 through stage 4 chronic kidney disease, or unspecified chronic kidney disease; N18.31 Chronic kidney disease, stage 3a
CPT/HCPCS: 36415; 80053; 80061